=== PATIENT | female | born 1995 | race Caucasian/White ===

== ENCOUNTER 2020-03-03 09:40 | Outpatient (CLI) | payer OTHER, SELFPAY ==
--- NOTE | ~2020-03-03 | XR_ITS ---
EXAMINATION: XR chest 2V EXAM DATE: 03/03/2020 10:15 INDICATION: R06.02 - Shortness of breath, Covid X5 Months Ago . TECHNIQUE: Frontal and lateral projections of the chest obtained and reviewed. There is no prior mamadou dy for comparison. FINDINGS: The lungs are clear. There are no pleural effusions. The cardiomediastinal silhouette is within normal limits. There is no pneumothorax suspected. The bones and soft tissues are unremarkab le. IMPRESSION: Unremarkable chest x-ray exam. Reviewed, dictated and finalized at location A. COPYIST
== END 2020-03-03 09:41 | disposition home or self-care (01) ==
LOC: ANHIMG 09:46
PROVIDERS: PCP Internal Medicine; Visit Provider Clinical Nurse Specialist
DX: R06.02 Shortness of breath (principal)
CPT/HCPCS: 71046

== ENCOUNTER 2020-03-15 14:10 | Outpatient (CLI) | payer OTHER, SELFPAY ==
--- NOTE | ~2020-03-15 | MMUS_ITS ---
EXAMINATION: MM diagnostic tamera BI w jina, US breast BI complete HISTORY: Right breast lump and bilateral breast pain TECHNIQUE: ML, MLO and craniocaudal 3-D tomosynthesis images of both breasts were performed and synth etic 2-D images were generated. CAD analysis was submitted and interpreted. High resolution complete bilateral breast ultrasound was performed. COMPARISON: None BREAST PARENCHYMAL COMPOSITION: The breasts are heterogeneously dense, which may obscure small masses . FINDINGS: MAMMOGRAPHIC FINDINGS: There is a circumscribed approximately 4 x 6 mm mass in the upper outer quadrant of the right breast. The mammographic appearance is consistent with benign process, very possibly an intramammary lymph n ode. There is a 3 x 5 mm oval circumscribed opacity in the lower outer right breast (craniocaudal Tomosynt hesis image /). No suspicious mass or architectural distortion, malignant calcification, skin thickening or retractio n of either breast is evident. ULTRASOUND: In the area of clinical complaint of right breast pain at 9:00 is some heterogeneous interspersed hyp oechoic solid and hyperechoic fatty tissue with mild vascularity in the area. No discrete mass or marika picious shadowing is evident. Right breast 10:00 1 cm from nipple: Parallel circumscribed hypoechoic 3.4 x 5.6 hypoechoic lesion wi thout internal vascularity, with no posterior shadowing, likely benign 10:00 1 cm from nipple: Parallel 5 x 12.5 mm sonolucency with through transmission posterior enhancem ent consistent with cyst. No suspicious mass or shadowing of either breast is evident otherwise. IMPRESSION: 1. Probable benign findings of right breast 2. 6 month diagnostic right mammogram and right breast ultrasound follow-up are recommended. BI-RADS category 3, probably benign findings. Reviewed, dictated and finalized at location A. NE MARKETING ANALYST IMPRESSION: 1. Probable benign findings of right breast 2. 6 month diagnostic right mammogram and right breast ultrasound follow-up are recommended. BI-RADS category 3, probably benign findings.
== END 2020-03-15 14:11 | disposition home or self-care (01) ==
PROVIDERS: PCP Internal Medicine; Visit Provider Clinical Nurse Specialist
DX: N64.4 Mastodynia (principal); N63.0 Unspecified lump in unspecified breast; R92.8 Other abnormal and inconclusive findings on diagnostic imaging of breast
CPT/HCPCS: 76641; 77062; 77066; G0279

== ENCOUNTER 2020-04-04 14:30 | Outpatient (CLI) | payer OTHER, SELFPAY ==
--- NOTE | 2020-04-11 13:30 | WPDPFTINT ---
PFT Interpretation PFT Interpretation: Full pulmonary function testing 04/04/2020. 1. Flows appear normal. 2. Following inhaled bronchodilator, there is substantial improvement in maximum mid-expiratory flows but only modest improvement in FEV1. 3. Lung volumes appear satisfactory. 4.. Diffusing capacity appears normal. Imp - this is a normal pulmonary function test overall, but the improvement in maximum mid-expiratory flows following inhaled bronchodilator does raise the question of bronchospasm. Boston Hartmann MD MSc FACP FCCP
== END 2020-04-04 14:31 | disposition home or self-care (01) ==
LOC: ANHPFT 14:32
PROVIDERS: PCP Internal Medicine; Visit Provider Clinical Nurse Specialist
DX: R06.02 Shortness of breath (principal)
CPT/HCPCS: 94060; 94726; 94729

== ENCOUNTER 2020-05-03 09:26 | Outpatient (CLI) | payer OTHER, SELFPAY ==
--- NOTE | 2020-05-03 09:39 | ECHO_ITS ---
Patient Info Name: Dilshad Bergman Age: 24 years : 1995 Gender: Female Ht: 63 in Wt: 158 lbs BSA: 1.81 m2 HR: 82 bpm BP: 118 / 83 mmHg Heart Rhythm: Sinus Rhythm Technical Quality: Good Exam Date: 05/03/2020 9:50 AM Exam Location: [facility]monary Patient Status: Outpatient Admit Date: 05/03/2020 Staff Ordering Physician: Nubia Jhaveri Physical Therapist Technician: Arturo Bales RDCS Attending Provider: Nubia Jhaveri Referring Physician: Shakila CEJA; Exam Type: CA echo doppler color flow Study Info Indications R06.02 - Shortness of breath Complete two-dimensional, color flow and Doppler transthoracic echocardiogram is performed. Strain analysis performed. History/Risk Factors Shortness of breath; Covid+ 09/2019. Summary 1. Complete two-dimensional, color flow and Doppler transthoracic echocardiogram is performed. 2. Left ventricular chamber dimension is normal. 3. Left ventricular systolic function is normal, estimated at 60-65%. 4. The left ventricular diastolic function is normal. 5. E/e' 4 is not elevated. 6. Global longitudinal strain is normal at -19.1%. 7. No pulmonary hypertension, estimated pulmonary arterial systolic pressure is 22 mmHg. Left Ventricle E/e' 4 is not elevated. Global longitudinal strain is normal at -19.1%. Left ventricular chamber dimension is normal. Left ventricular systolic function is normal, estimated at 60-65%. The left ventricular diastolic function is normal. Right Ventricle Right ventricular chamber dimension is normal. Right ventricular systolic function is normal. Left Atria Left atrial chamber dimension is normal. Right Atria Right atrial chamber dimension is normal. Aortic Valve The aortic valve is trileaflet. There is no aortic valve stenosis. There is no aortic valve regurgitation. Pulmonic Valve There is no pulmonic regurgitation. Mitral Valve There is no mitral valve stenosis. There is no mitral valve regurgitation. Tricuspid Valve There is no tricuspid valve regurgitation. No pulmonary hypertension, estimated pulmonary arterial systolic pressure is 22 mmHg. Pericardium/Pleural There is no pericardial effusion. Inferior Vena Cava Normal inferior vena cava with >50% collapse upon inspiration consistent with normal right atrial pressure, 5 mmHg. Aorta The aortic root size at the sinus of Valsalva is normal. Left Ventricular Outflow Tract Name Value Normal LVOT 2D LVOT Diameter 1.9 cm LVOT Doppler LVOT Peak Gradient 4 mmHg LVOT Mean Gradient 2 mmHg LVOT VTI 20 cm LVOT VTI/AV VTI Ratio 0.8 LVOT Stroke Volume 55 ml LVOT CO 4.5 l/min LVOT CI 2.5 l/min/m2 Mitral Valve Name Value Normal
== END 2020-05-03 09:27 | disposition home or self-care (01) ==
PROVIDERS: PCP Internal Medicine; Visit Provider Clinical Nurse Specialist
DX: R06.02 Shortness of breath (principal)
CPT/HCPCS: 93306

== ENCOUNTER 2020-09-13 11:29 | Outpatient (CLI) | payer OTHER, SELFPAY ==
--- NOTE | ~2020-09-13 | MMUS_ITS ---
EXAMINATION: MM diagnostic tamera RT w jina, US breast RT limited HISTORY: Follow-up right breast masses TECHNIQUE: Additional 3-D tomosynthesis images of the right breast were performed and synthetic 2-D i mages were generated. CAD analysis was submitted and interpreted. High resolution Limited right breas t ultrasound was performed. COMPARISON: 03/15/2020 BREAST PARENCHYMAL COMPOSITION: The breasts are heterogenously dense, which may obscure small masses. FINDINGS: MAMMOGRAPHIC FINDINGS: There are no suspicious masses, calcifications or architectural distortion in the right breast to sug gest malignancy. ULTRASOUND: Limited right breast ultrasound: At 10:00, 1 cm from the nipple there is a stable oval circumscribed hypoechoic mass measuring 13 x 7 x 5 mm. No significant interval change. At 10:00, 3 cm from the nipp le, there is a 4 mm cyst. At 10:00 in the left axilla there is a hypoechoic mass with echogenic hilum and internal vascularity measuring 6 mm, likely benign lymph node. IMPRESSION: 1. Probable benign left breast masses. 2. Recommend 6 month follow-up left breast ultrasound BI-RADS category 3, probably benign findings. Reviewed, dictated and finalized at location A. IMPRESSION: 1. Probable benign left breast masses. 2. Recommend 6 month follow-up left breast ultrasound BI-RADS category 3, probably benign findings.
== END 2020-09-13 11:30 | disposition home or self-care (01) ==
PROVIDERS: PCP Internal Medicine; Visit Provider Clinical Nurse Specialist
DX: R92.8 Other abnormal and inconclusive findings on diagnostic imaging of breast (principal)
CPT/HCPCS: 76642; 77061; 77065; G0279

== ENCOUNTER 2022-02-07 11:44 | Emergency (ER) | payer BC, SELFPAY ==
[2022-02-07 11:54] VITALS: BP 106/71; PULSE 78; RESP 16; TEMP 36.8; O2SAT 100
--- NOTE | 2022-02-07 12:17 | ED.URI ---
HPI - URI/Sore Throat General Chief Complaint: Upper Respiratory Infection Stated Complaint: SORE THROAT/BODY ACHES/CHILLS Time Seen by Provider: 02/07/22 12:18 History of Present Illness HPI Narrative: 26 y/o female presents to with complaints of sore throat, head congestion, cough, chills, body aches, and SOB that started 3 days ago. Denies any fevers, otalgia, wheezing, palpitations, CP, N/V/D. No sick contacts. She has attempted Ibuprofen with minimal improvement. Patient states that her s/s are similar to when she had COVID in 2019. Related Data Home Medications Medication Instructions Recorded Confirmed No Home Medications 02/07/22 02/07/22 Allergies Allergy/AdvReac Type Severity Reaction Status Date / Time Inhaled Anesthetics (Halogen AdvReac Intermediate Vomiting Verified 03/02/21 08:56 Based) Review of Systems Review of Systems: ROS per HPI PMFSH Past Medical History Medical History Abnormal white blood cell count Ankle fracture, right repaired 2012 Chronic fatigue Generalized anxiety disorder GERD (gastroesophageal reflux disease) Migraine headache Surgical History Surgical History S/P foot surgery, right [place] teeth removed Family History Family History Father FH: mental illness Grandparent Lupus Diabetes mellitus Heart disease Grandparent Thyroid disorder Breast cancer Breast disease Grandparent Diabetes mellitus Family hx of prostate cancer Grandparent Malignant neoplasm of prostate Family history of thyroid disease Mother Diabetes mellitus Family history of diabetes mellitus in first degree relative Father FH: mental illness Social History Social History Smoking status: Never smoker Alcohol intake: current Drinks per week: 2 Substance use: never Gender identity (if verbalized by the patient): Female Sexual Orientation (if Verbalized by the Patient): Straight or Heterosexual Exam Narrative: GENERAL: Ill-appearing, nontoxic EYES: conjunctivae clear ENT: Mucous membranes moist. TM pearly palacio with normal light reflex bilaterally; no tragal tenderness. Oropharynx erythematous without lesions. Tonsils 1+ and without exudate. No drooling, no hoarseness, no trismus, uvula midline. No tripod positioning, hot potato voice, or soft palate swelling. NECK: Supple. No lymphadenopathy CHEST: Clear to auscultation, breath sounds equal. No respiratory distress, speaks in full sentences. HEART: Regular rate and rhythm. No murmur heard. SKIN: Warm, dry, no rash. NEURO: Alert and oriented x3. Course Course Emergency Course: Patient is aware of diagnosis, understands and agrees to treatment plan. Anticipatory guidance given. Patient agrees to follow-up as directed and is aware of reasons to seek care at the emergency department. Portions of this record may have been created with voice recognition software Level of Care: Express Care Visit Vital Signs Vital signs: Vital Signs Temperature 98.3 F 02/07/22 11:54 Pulse Rate 78 02/07/22 11:54 Respiratory Rate 16 02/07/22 11:54 Blood Pressure 106/71 02/07/22 11:54 Pulse Oximetry 100 02/07/22 11:54 Temperature 98.3 F 02/07/22 11:54 Pulse Rate 78 02/07/22 11:54 Respiratory Rate 16 02/07/22 11:54 Blood Pressure 106/71 02/07/22 11:54 Pulse Oximetry 100 02/07/22 11:54 MDM - URI/Sore Throat MDM Narrative Medical decision making narrative: Covid and flu, strep negative; result reviewed with pt. Pt had reported sob due to the 'throat swelling' sensation. However on PE, minimal tonsillar swelling, LCTAB. VSS. No distress. Advise supportive treatments. Patient is appropriate for outpatient treatment and follow-up. Differential Diagnosis
== END 2022-02-07 13:02 | disposition home or self-care (01) ==
PROVIDERS: Emergency Provider Nurse Practitioner Family; PCP Internal Medicine
DX: J06.9 Acute upper respiratory infection, unspecified (principal); Z20.822 Contact with and (suspected) exposure to COVID-19; K21.9 Gastro-esophageal reflux disease without esophagitis; Z86.16 Personal history of COVID-19
CPT/HCPCS: 87081; 87426; 87804; 87880; 99213; C9803; G0463

== ENCOUNTER 2023-11-08 12:46 | Outpatient (CLI) | payer BC, SELFPAY ==
--- NOTE | ~2023-11-08 | US_ITS ---
US OB <=14 wk fetus w TV 11/08/2023 13:10 Indication: Amenorrhea Procedure: High-resolution Limited early obstetrical ultrasound using transabdominal and transvaginal technique Comparison: No prior studies for comparison. Findings: Uterus measures 8.7 x 4.9 x 3.7 cm. There is an intrauterine gestational sac measuring 0.78 cm corresponding to 5 week 4 day gestation. No pole or yolk sac are seen. Right ovary measures 2.3 x 2.8 x 2.4 cm. Left ovary measures 2.2 x 2.2 x 1.6 cm. Impression: 1: Intrauterine gestational sac corresponding to 5 week 4 day gestation. No pole or yolk sac. R ecommend follow-up with serial quantitative beta-hCG levels and ultrasound as clinically indicated. Reviewed, dictated and finalized at location B. Impression: 1: Intrauterine gestational sac corresponding to 5 week 4 day gestation. No fet al pole or yolk sac. Recommend follow-up with serial quantitative beta-hCG leve ls and ultrasound as clinically indicated.
== END 2023-11-08 12:47 ==
PROVIDERS: PCP Internal Medicine; Visit Provider Student in an Organized Health Care Education/Training Program
DX: N91.2 Amenorrhea, unspecified (principal)
CPT/HCPCS: 76801; 76817

== ENCOUNTER 2024-04-25 08:07 | Outpatient (RCR) | payer BC, SELFPAY ==
[2024-04-25 09:32] LABS: Basophils Percent Auto 0.3 % (0.2-1.2); Eosinophils Percent Auto 0.4 % (0-4.4); Hematocrit 34.1 % (37.0-47.0); Hemoglobin 11.6 g/dL (12.0-15.0); Immature Granulocyte Percent A 1.4 % (0-0.5); Lymphocytes Absolute Auto 0.96 K/mm3 (0.9-3.2); Lymphocytes Percent Auto 13.2 % (18.3-44.2); Mean Corpuscular Hemoglobin 30.5 pg (26-34); Mean Corpuscular Volume 89.7 fl (80-100); Mean Platelet Volume 10.1 fl (7.4-10.4); Monocytes Absolute Auto 0.4 K/mm3 (0.1-0.6); Monocytes Percent Auto 5.5 % (2.6-8.5); Neutrophils Absolute Auto 5.8 K/mm3 (1.3-6.7); Neutrophils Percent Auto 79.2 % (45.5-73.1); Platelet Count Result 190 k/mm3 (150-375); Red Cell Distribution Width 13.1 % (11.5-14.5); White Blood Count 7.3 K/mm3 (4.5-10.0)
[2024-04-25 09:41] LABS: Glucose 1 Hour PP 50gm Dose 120 mg/dL
[2024-04-25 10:23] LABS: HIV 1/2 Ab P24 Ag Result Negative (Negative)
[2024-04-25 11:00] LABS: Rapid Plasma Reagin Non-Reactive (NonReactive)
[2024-04-26] MEDS: RHO(D) IMMUNE GLOBULIN 300 MCG/2 ML SYRINGE IM (13:24)
== END 2024-07-24 23:59 | disposition home or self-care (01) ==
LOC: ANHLAB 08:07
PROVIDERS: PCP Internal Medicine; Visit Provider Obstetrics & Gynecology
DX: Z11.4 Encounter for screening for human immunodeficiency virus [HIV] (principal); Z11.3 Encounter for screening for infections with a predominantly sexual mode of transmission; Z29.13 Encounter for prophylactic Rho(D) immune globulin; O36.0190 Maternal care for anti-D [Rh] antibodies, unspecified trimester, not applicable or unspecified; Z3A.00 Weeks of gestation of pregnancy not specified
CPT/HCPCS: 36415; 82947; 85025; 85461; 86592; 86703; 86850; 86900; 86901; 90384; 96372; G0432; J2790

== ENCOUNTER 2024-05-05 09:04 | Emergency (ER) | payer BC, SELFPAY ==
--- NOTE | 2024-05-05 09:19 | ED_ITS ---
HPI - URI/Sore Throat General Chief Complaint: Upper Respiratory Infection Stated Complaint: flu like symptoms Time Seen by Provider: 05/05/24 09:20 Source: patient Mode of arrival: ambulatory Limitations: no limitations History of Present Illness HPI Narrative: Dilshad is a 28-year-old female patient presenting to the clinic today with complaints of flu-like symptoms x2 days. She reports she has fever, sore thro at, cough, congestion, body aches, chills, nausea, and vomiting. She is 31 weeks . Denies any vaginal discharge/bleeding, pelvic pain or abdominal pain. MD elicited complaint: fever, cough, sore throat, rhinorrhea and nasal congestion Related Data Home Medications ?Medication ?Instructions ?Recorded ?Confirmed ?Last Taken ?Type doxylamine succinate 25 mg tablet 25 mg PO QHS PRN 02/04/24 04/01/24 Unknown History (Unisom (doxylamine)) pyridoxine (vitamin B6) 10 mg 10 mg PO DAILY 02/04/24 04/01/24 Unknown History tablet Allergies Allergy/AdvReac Type Severity Reaction Status Date / Time Inhaled Anesthetics (Halogen AdvReac Intermediate Vomiting Verified 05/05/24 09:26 Based) Review of Systems Review of Systems: Pertinent positives per HPI. Patient denies any rash, headache, visual changes, dizziness, shortness of breath, chest pain, palpitations, diarrhea, constipation, abdominal pain, or any urinary issues. 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 Abnormal white blood cell count Ankle fracture, right repaired 2012 Migraine headache GERD (gastroesophageal reflux disease) Generalized anxiety disorder Chronic fatigue Surgical History Surgical History History of lumpectomy of right breast H/O removal of cyst S/P foot surgery, right [place] teeth removed Family History Family History Father FH: mental illness Grandparent Lupus Diabetes mellitus Heart disease Grandparent Thyroid disorder Breast cancer Breast disease Grandparent Diabetes mellitus Family hx of prostate cancer Grandparent Malignant neoplasm of prostate Family history of thyroid disease Mother Diabetes mellitus Family history of diabetes mellitus in first degree relative Asthma Father FH: mental illness Alcoholism Social History Social History Social History: Caffeine- coffee/tea Smoking status: Never smoker Alcohol intake: former Alcohol use details: little to none Substance use: never Substance use type: does not use Lack of Transportation: No Lack of Food: Never True Current Housing: Decline to Answer Concerned About Future Housing: Decline to Answer Difficulty Paying Gas/Electric Bills: Decline to Answer Difficulty Paying for Meds: Decline to Answer Currently Unemployed: Decline to Answer Education: Decline to Answer Difficulty w/ Childcare or Family Care: Decline to Answer Living arrangements: with family Additional living arrangements comments: Lives with her Occupation/Education: occupation Gender identity (if verbalized by the patient): Female Sexual Orientation (if Verbalized by the Patient): Straight or Heterosexual Comments At the time of my signature, I reviewed and agree with the nursing past medical, surgical, social, and family history. There is no relevant family history pertinent to the patient complaint. Exam Narrative: General: Well-developed, well nourished, in no apparent distress Head: Normocephalic, atraumatic Eyes: Pupils equally round and reactive to light bilaterally, EOM intact, sclera and conjunctive clear, no discharge, lids normal Ears: TMs intact and congested, ear canals clear, no drainage, grossly hearing normal. Nose: Nares patent, clear nasal discharge, no inflammation, no sinus tenderness. Mouth: Oral pharynx red without lesions or masses, good dentition, MMM. Postnasal drip Neck: Supple, trachea midline, no enlargement of anterior or posterior cervical nodes, no thyroid masses or goiter palpable. Cardio: Regular rate and rhythm, s1 and s2 normal, no murmur appreciated. Resp: Clear to auscultation bilaterally, no rhonchi, rales, wheezing or rubs Course Course Emergency Course: Portions of this record may have been created with voice recognition software. Level of Care: Express Care Visit Vital Signs Vital signs: Vital Signs Temperature 36.9 C 05/05/24 09:27 Pulse Rate 122 H 05/05/24 09:27 Respiratory Rate 18 05/05/24 09:27 Blood Pressure 102/62 05/05/24 09:27 Pulse Oximetry 99 05/05/24 09:27 Oxygen Delivery Room Air 05/05/24 09:27 Temperature 36.9 C 05/05/24 09:27 Pulse Rate 122 H 05/05/24 09:27 Respiratory Rate 18 05/05/24 09:27 Blood Pressure 102/62 05/05/24 09:27 Pulse Oximetry 99 05/05/24 09:27 Oxygen Delivery Room Air 05/05/24 09:27 Vital signs reviewed MDM - URI/Sore Throat MDM Narrative Medical decision making narrative: At the time of visit patient is resting comfortably on the exam table. Patient appears to be nontoxic. Labs: COVID, flu, and strep test were performed. COVID and strep were negative. Influenza testing was positive for influenza A. Plan: Patient is positive for influenza A. We will send strep for culture. Will place the patient on Tamiflu. Recommend contacting OB to see if there is any other further treatment they would like patient to complete. Supportive measures were discussed with the patient and they voiced understanding discharge instructions and agrees to treatment plan. Return precautions reviewed Differential Diagnosis Differential diagnosis: Likely upper respiratory infection, otitis media, sinusitis, viral infection, bronchitis, influenza, pharyngitis and other (COVID) Discharge Plan Discharge Clinical Impression: Influenza A Patient Disposition: Home, Self-Care Condition: Stable Instructions: Antibiotic Form, Influenza (ED) Additional Instructions: Take prescription medications only as prescribed-Tamiflu Increase fluids and stay well hydrated Tylenol for pain/fever Flonase and OTC antihistamines as directed Vicks vapor rub to open sinuses Sinus rinses for congestion Cepacol spray, cough drops, throat lozenges, warm tea with honey/lemon, gargle salt water to soothe throat BRAT diet for diarrhea Clear liquids x 24 hours then advance as tolerated for nausea/vomiting Go to the ED if you develop a worsening in your condition- high fever not controlled by Tylenol or Motrin, dehydration, weakness, lethargy, shortness of breath, or chest pain. Follow up with your PCP in 3-5 days if symptoms persist. Approved Medications for Patients Cold and Flu Symptoms --Tylenol (regular or extra Strength) Fever (call if over 101?)--Tylenol (regular or extra Strength) Nasal Drainage/Head Congestion--Chlor-Trimeton, Sudafed, Tavist,Tylenol Sinus Cough--Robitussin, Delsym, Mucinex Sore Throat--Chloraseptic, Cepacol lozenges Allergy Symptoms--Benadryl, Zyrtec, Zyrtec D, Claritin, Claritin D Nausea--Emetrol, Vitamin B6 Tablets, Sary, Sary Tea, Preggie Pops, B- Suckers Constipation--Milk of Magnesia, Metamucil, Fiberall, Konsyl, Colace (Docusate Sodium) Diarrhea--Imodium, Kaopectate, Follow BRAT diet: bananas, rice, applesauce, tea/toast Heartburn--Maalox, Mylanta, TUMS, Prilosec OTC, Zantac, Tagamet, Prevacid, Pepcid Hemorrhoids--Tucks Pads, Anusol, Preparation H, warm sitz baths Patient Language: Belizean Prescriptions: New oseltamivir [Tamiflu] 75 mg capsule 75 mg PO Q12H 5 Days Qty: 10 0RF No Action Unisom (doxylamine) 25 mg tablet 25 mg PO QHS PRN pyridoxine (vitamin B6) 10 mg tablet 10 mg PO DAILY metoclopramide HCl [Reglan] 10 mg tablet 10 mg PO Q6H PRN (Reason: nausea and vomiting) Qty: 30 1RF Follow-up/Referrals: Boston Freeman DO [Primary Care Provider] - Time of Disposition: 09:34 Quality NIHSS Nursing Documentation ED NIHSS nursing documentation: reviewed/agree
[2024-05-05 09:27] VITALS: BP 102/62; PULSE 122; RESP 18; TEMP 36.9; O2SAT 99
[2024-05-05 09:35] LABS: EDINFLUASCREEN Positive (Negative); EDINFLUBSCREEN Negative (Negative); EDSTREPNEGPOS1 Negative (Negative)
[2024-05-05 09:41] LABS: EDCOVIDSCREEN Negative (Negative)
--- OUTSIDE RECORDS SUMMARY | 2024-05-07 16:43 | XMS_ITS | Encounter Summary ---
Author Organization [facility] Address [address] [place] [address] Phone Care Team Providers Care Senior Technical Support Engineer Name Role Phone Boston Freeman DO Primary Care Provider [phone] Encounter Details Date Type Department Care Team (Late st Contact Info) Description 09/19/2020 Telephone [facility] Surgery [address] [place] [address] [facility] 5[address] [place] [address] [place] [id number] Adia Morrwo Social History Tobacco Use Types Packs/Day Years Used Date Smoking Tobacco: Never Comments No Sex and Gender Information Value Date Recorded Sex Assigned at Not on file 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
--- OUTSIDE RECORDS SUMMARY | 2024-05-07 16:43 | XMS_ITS | Clinical Summary ---
Author Organization [facility] Address [address] [place] [address] Care Team Providers Care Gut Sorter Name Role Phone Boston Freeman DO Primary Care Provider +1- [phone] Allergies Active Allergy Reactions Criticality Noted Date Comments Coconut Nausea & Vomiting Low 10/30/2022 Mushroom Shortness of breath High 11/16/2022 Other Chills,Vomiting Low 04/18/2020 ANESTHESIA- HARD TO COME OUT OF Medications ProAir RespiClick 90 mcg/actuation inhaler Inhale 2 puffs every 8 (eight) hours as needed for shortness of breath or wheezing 0 Active Simpesse 0.15 mg-30 mcg (84)/10 mcg (7) tablets,dose pack,3 monthIndications: Contraception nightly 2 Active multivitamin capsuleIndication s:Vitamin Deficiency Prevention Take 1 capsule by mouth every morning Active ibuprofen (ADVIL,MOTRIN) 400 mg tablet Take 1 tablet (400 mg total) by mouth every 6 (six) hours as needed for pain Active oxyCODONE-acetami nophen (PERCOCET) 5-325 mg per tabletIndications :Pain Take 1 tablet by mouth every 4 (four) hours as needed for pain 8 tablet 3 Active Additional Information Patient not taking.Reported on 11/29/2022 docusate sodium (COLACE) 100 mg capsuleIndication s:constipation Take 1 capsule (100 mg total) by mouth 2 (two) times a day with a glass of water 8 capsule Active Additional Information Patient not taking.Reported on 11/29/2022 Active Problems Problem Noted Date Diagnosed Date Mass of breast 10/29/2022 Breast pain, right 10/25/2022 Anxiety 08/19/2014 Gastroesophageal reflux disease 08/19/2014 Migraine headache 08/19/2014 Surgical History Surgery Date Site/Laterality Comments OTHER SURGICAL HISTORY 04/15/2018 - 04/14/2019 cyst removal on right shoulder OTHER SURGICAL HISTORY 04/15/2012 - 04/14/2013 bone removed on right foot WISDOM TOOTH EXTRACTION 04/15/2014 - 04/14/2015 all 4 Medical History Medical History Date Comments PONV (postoperative nausea and vomiting) Family History Medical History Relation Name Comments Anesthesia problems Maternal Grandmother PONV, delayed emergence, chills Anesthesia problems Mother PONV, de layed emergence, chills Diabetes type I Mother Diabetes marek litus type 1; Other Mother Anesthesia reac tion; Diabetes Other 1 Family history of Diabetes mellitus; Thyroid disease Other 2 Family histo ry of Thyroid disorder; Prostate cancer Paternal Grandfather Skin cancer Paternal Grandfather Relation Name Status Comments Maternal Grandmother Mother Alive Other 1 Other 2 Paternal Grandfather Social History Tobacco Use Types Packs/Day Years Used Date Smoking Tobacco: Never Smokeless Tobacco: Never Tobacco Cessation:Counseling Given: Not Answered Personal Safety Answer Date Recorded Have you ever been in or are you currently in a harmful physical or emotional relationship or is someone making you feel afraid or unsafe? 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 Gender Identity Not on file Sexual Orientation Straight 10/22/2022 10 :32 AM CDT Obstetrics History Last Filed Vital Signs Vital Sign Reading Time Taken Comments Blood Pressure 108/90 11/16/2022 10:20 AM CDT Pulse 94 11/16/2022 10:20 AM CDT Temperature 36.2 ??C (97.2 ??F) 11/16/2022 9:51 AM CD T Respiratory Rate 21 11/16/2022 10:20 AM CDT Oxygen Saturation 99% 11/16/2022 10:20 AM CDT Inhaled Oxygen Concentration - - Weight 73 kg (161 lb) 11/29/2022 8:55 AM CDT Height 160 cm (5' 3 ) 11/29/2022 8:55 AM CDT Body Mass Index 28.52 11/29/2022 8:55 AM CDT Plan of Treatment Health Maintenance Due Date Last Done Comments Cervical Cancer Screening 1993 Depression Screening 1993 Hepatitis C Screening 1993 DTaP/Tdap/Td Vaccine (1 - Tdap) 2004 Varicella Vaccines (1 of 2 - 13+ 2-dose series) 2006 Hepatitis B Screening 2011 Regular Well Visit/Exam 18-64 2011 Influenza Vaccine (#1) 2023 HPV Vaccines Aged Out No longer eligi ble based on patient's age to complete this topic Pneumococcal vaccine <65 Aged Out No longer eligible based on patient's age to complete this topic Insurance [facility] CHOICE PLUS [employer] OOS [employer] OOS Care Teams Gut Sorter Relationship Specialty Start Date End Date Boston Freeman DO PCP - General Internal Medicine 03/18/20
--- OUTSIDE RECORDS SUMMARY | 2024-05-07 16:43 | XMS_ITS | Referral Summary ---
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
== END 2024-05-05 09:48 | disposition home or self-care (01) ==
PROVIDERS: Emergency Provider Nurse Practitioner Family; PCP Internal Medicine
DX: O99.513 Diseases of the respiratory system complicating pregnancy, third trimester (principal); Z3A.31 31 weeks gestation of pregnancy; J10.1 Influenza due to other identified influenza virus with other respiratory manifestations; Z20.822 Contact with and (suspected) exposure to COVID-19; O99.613 Diseases of the digestive system complicating pregnancy, third trimester; K21.9 Gastro-esophageal reflux disease without esophagitis
CPT/HCPCS: 87081; 87426; 87804; 87880; 99213; G0463

== ENCOUNTER 2024-05-19 15:51 | Outpatient (RCR) | payer BC, SELFPAY ==
[2024-05-11 12:16] VITALS: BP 109/72; PULSE 103
[2024-05-11 13:10] VITALS: BP 109/72; PULSE 102
--- NOTE | ~2024-05-19 | US_ITS ---
EXAMINATION: US OB BPP wo non-stress DATE: 05/11/2024 12:58 INDICATION: Decreased movement TECHNIQUE: Real-time pelvic ultrasound was performed. The interpreting radiologist was not present fo r the study. COMPARISON: None. FINDINGS: There is a single living fetus in vertex presentation. The placenta is anterior. heart rate is 147 beats per minute (bpm). Metastatic fluid volume is subjectively normal with deepest vertical poc ket measuring 5.5 cm. Biophysical profile performed by the technologist: breathing (30 sec sustained breathing in 30 minutes): 2 out of 2 movement (3 gross body movements in 30 minutes): 2 out of 2 tone (one episode of mctmony-nzsaalkff-ootbqmo limb movement): 2 out of 2 Amniotic fluid pocket (2 cm): 2 out of 2 Total score: 8 out of 8 IMPRESSION: 1. Single living fetus in vertex presentation with heart rate of 147 bpm. 2. Biophysical profile 8 out of 8. Reviewed, dictated and finalized at location B. GR[employer] CONSULTANT
[2024-05-19 18:30] VITALS: BP 107/67; PULSE 101
== END 2024-08-05 17:02 | disposition home or self-care (01) ==
LOC: ANHOBOP 15:51
PROVIDERS: PCP Internal Medicine; Visit Provider Student in an Organized Health Care Education/Training Program
DX: O36.8190 Decreased fetal movements, unspecified trimester, not applicable or unspecified (principal)
CPT/HCPCS: 59025; 76819

== ENCOUNTER 2024-07-08 16:53 | Inpatient (IN) | payer BC, SELFPAY ==
[2024-07-08] VITALS (66 sets, daily range): BP systolic 114–143; BP diastolic 65–94; PULSE 25–148; TEMP 36.6–37.2; O2SAT 93–100; BMI 37.0
--- NOTE | 2024-07-08 16:53 | LDADM ---
This patient, Dilshad Smith, was admitted to Labor/Delivery/Recovery 103 on 07/08/24 at 16:53. Plans for labor, pain management and were discussed with patient. Patient/family oriented to hospital policies and general routines including ID bracelet, bed and alarms, visiting hours, pain management, procedures, bathroom and other care routines, personal items, smoking policy, room service/diet and guest tray routines, infant security routines, and visiting hours. Patient/Family are encouraged to report perceived risks to care and to ask questions if they do not understand what they are told or what they should do. See OBIX for further documentation.
--- OUTSIDE RECORDS SUMMARY | 2024-07-08 17:27 | XMS_ITS | Referral Summary ---
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 Gender Identity Not on file Sexual Orientation Straight 10/22/2022 10 :32 AM CDT Last Filed Vital Signs Vital Sign Reading Time Taken Comments Blood Pressure 108/90 11/16/2022 10:20 AM CDT Pulse 94 11/16/2022 10:20 AM CDT Temperature 36.2 C (97.2 F) 11/16/2022 9:51 AM CDT Respiratory Rate 21 11/16/2022 10:20 AM CDT Oxygen Saturation 99% 11/16/2022 10:20 AM CDT Inhaled Oxygen Concentration - - Weight 73 kg (161 lb) 11/29/2022 8:55 AM CDT Height 160 cm (5' 3 ) 11/29/2022 8:55 AM CDT Body Mass Index 28.52 11/29/2022 8:55 AM CDT Plan of Treatment Not on file Insurance [facility] CHOICE PLUS [facility] HMO/PPO Address: [address] [address] [place] [address] [employer] ACCESS OOS [employer] ACCESS OOS Care Teams Passport Application Examiner Relationship Specialty Start Date End Date Boston Freeman DO PCP - General Internal Medicine 03/18/20
--- OUTSIDE RECORDS SUMMARY | 2024-07-08 17:27 | XMS_ITS | Clinical Summary ---
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
--- OUTSIDE RECORDS SUMMARY | 2024-07-08 17:27 | XMS_ITS | Encounter Summary ---
Author Organization [facility] Address [address] [place] [address] Phone Care Team Providers Care Senior Materials Planner Name Role Phone Boston Freeman DO Primary Care Provider +1- [phone] Encounter Details Date Type Department Care Team (Late st Contact Info) Description 09/19/2020 Telephone [facility] Surgery [facility] 5th [place] [address] [place] [address] Adia Morrow Social History Tobacco Use Types Packs/Day Years Used Date Smoking Tobacco: Never Comments No Sex and Gender Information Value Date Recorded Sex Assigned at Not on file 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
[2024-07-08 18:03] LABS: Basophils Percent Auto 0.3 % (0.2-1.2); Eosinophils Percent Auto 0.4 % (0-4.4); Hematocrit 32.1 % (37.0-47.0); Hemoglobin 10.8 g/dL (12.0-15.0); Immature Granulocyte Absolute 0.09 K/mm3 (0.00-0.031); Immature Granulocyte Percent A 1.3 % (0-0.5); Lymphocytes Absolute Auto 1.18 K/mm3 (0.9-3.2); Lymphocytes Percent Auto 17.5 % (18.3-44.2); Mean Corpuscular HGB Conc 33.6 g/dl (32-36); Mean Corpuscular Hemoglobin 28.4 pg (26-34); Mean Corpuscular Volume 84.5 fl (80-100); Mean Platelet Volume 10.9 fl (7.4-10.4); Monocytes Absolute Auto 0.4 K/mm3 (0.1-0.6); Monocytes Percent Auto 6.2 % (2.6-8.5); Neutrophils Percent Auto 74.3 % (45.5-73.1); Platelet Count Result 272 k/mm3 (150-375); Red Cell Distribution Width 14.1 % (11.5-14.5); White Blood Count 6.7 K/mm3 (4.5-10.0)
[2024-07-08] MEDS: OXYTOCIN 30 UNITS/NS 500 ML 30 UNITS/500 ML BAG 6 UNITS IV CONT (18:37)
[2024-07-08] MEDS: LACTATED RINGERS 1,000 ML 125 ML IV CONT (18:38)
[2024-07-08 18:44] LABS: OBXCEM ROM Plus Positive (Negative)
[2024-07-08 18:53] LABS: HIV 1/2 Ab P24 Ag Result Negative (Negative)
[2024-07-08 19:18] LABS: Syphilis IgG/IgM Antibody Negative (Negative)
--- NOTE | 2024-07-08 19:20 | P.PNAN_ITS ---
Anes - Eval Pre Procedure Procedure: labor epidural Date/Time: 07/08/24 19:20 Surgeon: leonela Preop Diagnosis: pain during labor Pre Op Diagnosis: IOL Patient Data Age: 29 Gender: F Height: 1.6 m Weight: 95 kg Last Vital Signs Temp 37.2 C 07/08/24 18:30 Pulse 99 07/08/24 19:00 BP 127/82 07/08/24 19:00 Allergies Allergy/AdvReac Type Severity Reaction Status Date / Time Inhaled Anesthetics (Halogen AdvReac Intermediate Vomiting Verified 07/06/24 17:28 Based) Home Medications ?Medication ?Instructions ?Recorded ?Confirmed ?Type No Home Medications 06/24/24 07/08/24 History Laboratory Tests 07/08/24 07/08/24 17:05 17:40 WBC 6.7 K/mm3 (4.5-10.0) RBC 3.80 L M/mm3 (4.2-5.4) Hgb 10.8 L g/dL (12.0-15.0) Hct 32.1 L % (37.0-47.0) MCV 84.5 fl (80-100) MCH 28.4 pg (26-34) MCHC 33.6 g/dl (32-36) RDW 14.1 % (11.5-14.5) Plt Count 272 k/mm3 (150-375) MPV 10.9 H fl (7.4-10.4) Immature Gran % (Auto) 1.3 H % (0-0.5) Neut % (Auto) 74.3 H % (45.5-73.1) Lymph % (Auto) 17.5 L % (18.3-44.2) [place] % (Auto) 6.2 % (2.6-8.5) Eos % (Auto) 0.4 % (0-4.4) Baso % (Auto) 0.3 % (0.2-1.2) Lymph # (Auto) 1.18 K/mm3 (0.9-3.2) [place] # (Auto) 0.4 K/mm3 (0.1-0.6) Eos # (Auto) 0.0 K/mm3 (0-0.3) Baso # (Auto) 0.0 K/mm3 (0.0-0.1) Abs Immat Gran (auto) 0.09 H K/mm3 (0.00-0.031) Absolute Neuts (auto) 5.0 K/mm3 (1.3-6.7) Absolute Nucleated RBC 0.000 K/mm3 (0.0-0.012) Nucleated RBC % 0.0 % (0.0-0.2) Membranes Rupture Rom plus positive (Negative) Syphilis IgG/IgM Ab Negative (Negative) HIV 1&2 Ab/P24 Ag 4thGn Negative (Negative) Blood Type A Negative Antibody Screen Positive Antibody Identification Pending Antigen Identification Pending NGA, IgG Interpret Pending NGA, Poly Interpret Pending NGA, Complement Interp Pending Patient hx anesthesia problems: post op nausea/vomiting Family hx anesthesia problems: none Results Review: All pre-operative results and documents have been reviewed as part of the pre- operative evaluation. 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 Abnormal white blood cell count Ankle fracture, right repaired 2012 Migraine headache GERD (gastroesophageal reflux disease) Generalized anxiety disorder Chronic fatigue Surgical History Surgical History History of lumpectomy of right breast H/O removal of cyst S/P foot surgery, right [place] teeth removed Family History Family History Father FH: mental illness Grandparent Lupus Diabetes mellitus Heart disease Grandparent Thyroid disorder Breast cancer Breast disease Grandparent Diabetes mellitus Family hx of prostate cancer Grandparent Malignant neoplasm of prostate Family history of thyroid disease Mother Diabetes mellitus Family history of diabetes mellitus in first degree relative Asthma Father FH: mental illness Alcoholism Social History Social History Social History: Caffeine- coffee/tea Smoking status: Never smoker Alcohol intake: former Alcohol use details: little to none Substance use: never Substance use type: does not use Do You Feel Safe in your Home?: Yes Lack of Transportation: No Lack of Food: Never True Current Housing: I Have Housing Concerned About Future Housing: No Difficulty Paying Gas/Electric Bills: No Difficulty Paying for Meds: No Currently Unemployed: No Education: Associate Degree Difficulty w/ Childcare or Family Care: No Living arrangements: with family Additional living arrangements comments: Lives with her Occupation/Education: occupation Gender identity (if verbalized by the patient): Female Sexual Orientation (if Verbalized by the Patient): Straight or Heterosexual Spiritual care concerns: No Exam Day of Procedure 07/08/24 19:20
[2024-07-08] MEDS: fentaNYL CITRATE INJ (*CRX) 100 MCG/2 ML VIAL IV PUSH (22:22)
--- NOTE | 2024-07-08 23:56 | WPDHPUPDATE1 ---
History and Physical Update Update Date/Time: 07/08/24 23:56 29 yo at 40w1d who presents with SROM. She reports SROM at 1500. History and Physical has been reviewed, including an updated exam of the patient. There are NO changes in the patient's condition. Risks, benefits, and alternatives have been discussed and questions answered. Patient agrees to proceed with procedure. - Varicella/rubella- non-immune - Rh neg- Pt will need rhogam - Severe gerd; h/o multiple EGDs/esophegeal stretching, previously on prilosec - Anxiety- has script for zoloft 25mg daily -admit to L&D routine admission orders GBS neg continuous EFM will augment with pitocin
[2024-07-09] VITALS (225 sets, daily range): BP systolic 87–145; BP diastolic 37–123; PULSE 31–143; RESP 18; TEMP 36.6–37.7; O2SAT 78–100
[2024-07-09] MEDS: fentaNYL CITRATE INJ (*CRX) 100 MCG/2 ML VIAL IV PUSH (00:07)
[2024-07-09] MEDS: ONDANSETRON INJ 4 MG/2 ML VIAL IV PUSH (05:02)
--- NOTE | 2024-07-09 05:52 | PM.OBPRVD ---
OB - Vaginal Delivery Note Procedure Delivery date: 07/09/24 Induction method: None Delivery augmentation: Pitocin Delivery monitor: External FHT and Internal Uterine Route of delivery: Episiotomy description: None Laceration Description: Perineal - 2nd Degree Delivery repair: vicryl Specimen: No Quantitative Blood Loss (ml): 100 Anesthesia type: Epidural Disposition: Floor Complications: No immediate complications Narrative: Patient pushed for a spontaneous vaginal delivery. The fetus was delivered atraumatically and placed on the maternal abdomen. The cord was clamped and cut after 1 minute of life. The cord was double clamped and cut and a segment of cord was collected for cord gases. Cord blood was collected for blood type and Coomb's testing. The placenta delivered spontaneously and was noted to be intact. The perineum was inspected and a second degree perineal laceration was noted. The laceration was repaired with 3-0 vicryl in a running fashion. The uterus was firm and good hemostasis was noted. Baby Date of : 07/09/24 Time of : 05:26 gender: Female presentation: vertex position: Left Occiput Anterior Placenta delivery description: Spontaneous Cord Vessel Description: 3 Vessels score one minute: 7 score five minutes: 9
[2024-07-09] MEDS: OXYTOCIN 30 UNITS/NS 500 ML 30 UNITS/500 ML BAG 125 UNITS IV CONT ×2 (06:09→07:20)
[2024-07-09] MEDS: miSOPROStol 200 MCG TABLET 1000 MCG RECTAL (06:59)
[2024-07-09] MEDS: IBUPROFEN 600 MG TABLET PO ×3 (07:50→20:05)
[2024-07-09] MEDS: fentaNYL CITRATE INJ (*CRX) 100 MCG/2 ML VIAL (09:11)
--- NOTE | 2024-07-09 09:40 | P.PNOB_ITS ---
OB - PN: Subj Subjective Date/time seen: 07/09/24 09:40 Interval history: 29-year-old called patient's room by RN for concerns of bleeding. Patient had had increased bleeding . Patient was passing large clots in uterus felt soft. Patient had received 1000 mcg of Cytotec UT. Patient was mildly tachycardic. The next step patient was stood up to use the restroom, she had another large blood clot passed. Patient had up to 1200 mL of blood loss since delivery. OB - PN: Obj Data Labs 07/08/24 17:40 Labs: Laboratory Results - last 24 hr 07/08/24 07/08/24 17:05 17:40 WBC 6.7 RBC 3.80 L Hgb 10.8 L Hct 32.1 L MCV 84.5 MCH 28.4 MCHC 33.6 RDW 14.1 Plt Count 272 MPV 10.9 H Immature Gran % (Auto) 1.3 H Neut % (Auto) 74.3 H Lymph % (Auto) 17.5 L [place] % (Auto) 6.2 Eos % (Auto) 0.4 Baso % (Auto) 0.3 Lymph # (Auto) 1.18 [place] # (Auto) 0.4 Eos # (Auto) 0.0 Baso # (Auto) 0.0 Abs Immat Gran (auto) 0.09 H Absolute Neuts (auto) 5.0 Absolute Nucleated RBC 0.000 Nucleated RBC % 0.0 Membranes Rupture Rom plus positive Syphilis IgG/IgM Ab Negative HIV 1&2 Ab/P24 Ag 4thGn Negative Blood Type A Negative Antibody Screen Positive Antibody Identification Inconclusive Antigen Identification Cancelled NGA, IgG Interpret Not Performed NGA, Poly Interpret Neg NGA, Complement Interp Not Performed OB - PN A/P Assessment and Plan (1) hemorrhage: Code(s): O72.1 - Other immediate hemorrhage Status: Acute Assessment and Plan: called patient's room for concern for hemorrhage Patient had over 1200 mL of blood loss since delivery Uterus enlarged and displaced from the midline Bimanual exam performed, blood clot removed from the lower uterine segment The Yana device was placed within the uterus. Vaginal balloon was filled with saline. The device was hooked to wall suction Device was placed without complications Patient tolerated procedure well Patient stable at this time Will continue to monitor blood loss Time Spent With Patient Time: Total time spent is greater than 50% in coordination of care (as documented) at patient's floor/unit and/or counseling patient: Review of Systems 2 Review of Systems: All systems reviewed & are unremarkable except as noted in HPI and below Exam 2 Const: General: cooperative and comfortable Resp: Effort & Inspection: normal respiratory effort and able to speak in complete sentences Cardio: Rate: tachycardic GI: GI Palp: Yes Soft to palpation : External Female Exam: normal external appearance Speculum Exam - Vagina: vaginal bleeding Bimanual exam- vagina & uterus: enlarged and soft
[2024-07-09] MEDS: LACTATED RINGERS 1,000 ML 999 ML IV CONT (10:17)
[2024-07-09] MEDS: ACETAMINOPHEN 325 MG TABLET 650 MG PO (10:20)
[2024-07-09] MEDS: ceFAZolin 2 GM/D5W 50 ML 2 GM/50 ML BAG IVPB (12:21)
[2024-07-09] MEDS: MULTIVIT/MIN/PREN/FOL AC/IRON TABLET 1 TAB PO (13:10)
--- NOTE | 2024-07-09 13:41 | OBPPTRN ---
Patient and baby transferred to post room #285 via ( bed). Support person present. Oriented to unit, room, information board, rooming in, admission packet and security measures. Patient verbalizes understanding.
--- NOTE | 2024-07-09 14:23 | PC.NURSE ---
1245. Introductions were made, then consulted with patient to assess needs related to . Discussed with mother her plans to feed her and the experience so far. Mom reports she would like to pump and feed infant with a bottle, she reports she is not interested in attempted to breastfeed at this time. Mom reports she has her own pump. Instructions given on cleaning, care, usage, that there should be no pain, pumping schedule for milk production, collection, and storage of human milk. Patient was assessed for correct placement, flange size, to pump for comfort and nipple stretching/stimulation for adequate milk production every 3 hours (8 times in 24 hours) 1-2 times at night. Parents are encouraged to record the pumping schedule on the feeding sheet.? Encouraged mother to express any questions or concerns she has regarding feedings. Advised her to call out for a latch check or if she needs assistance waking or positioning baby. Reviewed the blue feeding worksheet for required output and feeding at least 8-12 times every 24 hours. Resources provided for inpatient and outpatient services with the feeding sheet, mom/baby guide, and name/number written on the communication board. Mother voiced understanding of information and will call if there is a request for assistance. Reported to the Primary RN?
--- NOTE | 2024-07-09 15:00 | PC.NURSE ---
Yana device removed by Dr. Martinez at 1450. A few small sugar size clots noted. Fundus 1 below with small bleeding. Urinary catheter removed at 1455. 100mL output drained.
--- NOTE | 2024-07-09 15:05 | PC.NURSE ---
Yana device removed by Dr. Martinez at 1450. A few small nickel size clots noted. Fundus 1 below with small bleeding. Urinary catheter removed at 1455. 100mL output drained.
--- NOTE | 2024-07-09 15:30 | P.PNOB_ITS ---
OB - PN: Subj Subjective Date/time seen: 07/09/24 15:30 Interval history: Patient resting comfortably in bed. She had reported discomfort with the Yana device in place. There had been minimal output from the device for some time. Suction was turned off and the device left in place for 1 hour. No further bleeding was noted. Patient comments: no complaints and pain well controlled OB - PN: Obj Data Labs 07/08/24 17:40 Labs: Laboratory Results - last 24 hr 07/08/24 07/08/24 17:05 17:40 WBC 6.7 RBC 3.80 L Hgb 10.8 L Hct 32.1 L MCV 84.5 MCH 28.4 MCHC 33.6 RDW 14.1 Plt Count 272 MPV 10.9 H Immature Gran % (Auto) 1.3 H Neut % (Auto) 74.3 H Lymph % (Auto) 17.5 L [place] % (Auto) 6.2 Eos % (Auto) 0.4 Baso % (Auto) 0.3 Lymph # (Auto) 1.18 [place] # (Auto) 0.4 Eos # (Auto) 0.0 Baso # (Auto) 0.0 Abs Immat Gran (auto) 0.09 H Absolute Neuts (auto) 5.0 Absolute Nucleated RBC 0.000 Nucleated RBC % 0.0 Membranes Rupture Rom plus positive Syphilis IgG/IgM Ab Negative HIV 1&2 Ab/P24 Ag 4thGn Negative Blood Type A Negative Antibody Screen Positive Antibody Identification Inconclusive Antigen Identification Cancelled NGA, IgG Interpret Not Performed NGA, Poly Interpret Neg NGA, Complement Interp Not Performed OB - PN A/P Assessment and Plan (1) hemorrhage: Code(s): O72.1 - Other immediate hemorrhage Status: Acute Assessment and Plan: VSS patient states she is feeling much better no bleeding noted after Yana taken off of suction for 1 hr The balloon was deflated and the Yana device was removed There was a small dark red blood clot that followed after the device. Good hemostasis was noted after removal patient tolerated removal will continue to monitor bleeding Time Spent With Patient Time: Total time spent is greater than 50% in coordination of care (as documented) at patient's floor/unit and/or counseling patient: Time with patient: less than 15 minutes Review of Systems 2 Review of Systems: All systems reviewed & are unremarkable except as noted in HPI and below Exam 2 Const: General: cooperative and comfortable Resp: Effort & Inspection: normal respiratory effort Cardio: Rate: regular rate GI: GI Palp: Yes Soft to palpation and No Tenderness to palpation present (GI) Auscultation: normal bowel sounds Other: fundus firm and below umbilicus. Psych: Affect: normal affect
[2024-07-09] MEDS: DOCUSATE SODIUM 100 MG CAPSULE PO (16:05)
--- NOTE | 2024-07-09 17:09 | PC.NURSE ---
1709. Breast pump provided due to moms preference, mom states she would like to pump and bottle feed and does not want to breastfeed. Instructions given on cleaning, care, usage, that there should be no pain, pumping schedule for milk production, collection, and storage of human milk. Patient was assessed for correct placement, flange size, to pump for comfort and nipple stretching/stimulation for adequate milk production every 3 hours (8 times in 24 hours) 1-2 times at night. Parents are encouraged to record the pumping schedule on the feeding sheet.?Mother voiced understanding of the education shared along with mom/baby guide and the pump measurement, flange fit handout for additional resource information. Reported to the Primary RN.
[2024-07-10] VITALS (11 sets, daily range): BP systolic 106–188; BP diastolic 58–83; PULSE 74–110; RESP 12–18; TEMP 36.1–36.8; O2SAT 96–99
[2024-07-10 04:48] LABS: Hematocrit 23.8 % (37.0-47.0); Hemoglobin 7.6 g/dL (12.0-15.0)
--- NOTE | 2024-07-10 07:43 | P.PNOB_ITS ---
OB - PN: Subj Subjective Date/time seen: 07/10/24 07:43 Interval history: Patient resting comfortably in bed. She had reported discomfort with the Yana device in place. There had been minimal output from the device for some time. Suction was turned off and the device left in place for 1 hour. No further bleeding was noted. Patient comments: no complaints, pain well controlled and tolerating diet [place] feeding status: exclusively breast feeding Narrative: patient doing well this AM. No complaints. Pain is well controlled. She reports minimal bleeding. She is ambulating and voiding without difficulty. She is tolerating PO. She denies N/V, fever, chills. OB - PN: Obj Data Labs 07/10/24 03:57 Labs: Laboratory Results - last 24 hr 07/08/24 07/10/24 17:40 03:57 Hgb 7.6 L D Hct 23.8 L Antigen Identification Cancelled Crossmatch See Detail OB - PN A/P Plan day: 1 Plan: routine care Comments: patient doing well H/H stable continue routine care Time Spent With Patient Time: Total time spent is greater than 50% in coordination of care (as documented) at patient's floor/unit and/or counseling patient: Time with patient: less than 15 minutes Review of Systems 2 Review of Systems: All systems reviewed & are unremarkable except as noted in HPI and below Exam 2 Const: General: comfortable and no acute distress Resp: Effort & Inspection: normal respiratory effort Cardio: Rate: regular rate GI: GI Palp: Yes Soft to palpation and No Tenderness to palpation present (GI) Auscultation: normal bowel sounds Other: fundus firm and below umbilicus. Psych: Affect: normal affect
--- NOTE | 2024-07-10 07:48 | WPDANLDPN2 ---
Anes-Prog Note L&D Date/Time: 07/10/24 07:48 Comfortable throughout: labor and delivery Neuraxial method: epidural Epidural/Spinal procedure site: clean & non-tender Neuro status: Neuro function grossly intact. Cardiovascular status: normal Respiratory status: normal Airway patency: baseline Mental status: baseline Post-Op hydration status: normal Vital Signs: Last Vital Signs Temp 98 F 07/10/24 03:56 Pulse 74 07/10/24 03:56 Resp 18 07/10/24 03:56 BP 118/67 07/10/24 03:56 Pulse Ox 99 07/10/24 03:56 O2 Del Method Room Air 07/09/24 15:00 Pain score (VAS): 0/10 I/O: Intake & Output 07/09/24 07/09/24 07/10/24 15:59 23:59 07:59 Intake Total 0 Output Total 1550 Balance -1550 0 Post-procedural complaints: none Patient feedback: Patient satisfied with anesthetic care.
[2024-07-10] MEDS: MULTIVIT/MIN/PREN/FOL AC/IRON TABLET 1 TAB PO (08:24)
[2024-07-10] MEDS: DOCUSATE SODIUM 100 MG CAPSULE PO ×2 (08:25→16:00)
[2024-07-10] MEDS: IBUPROFEN 600 MG TABLET PO ×2 (08:25→20:00)
[2024-07-10] MEDS: POLYSACCHARIDE IRON COMPLEX 150 MG CAPSULE PO ×2 (08:25→16:00)
--- NOTE | 2024-07-10 10:30 | PC.NURSE ---
Met with patient regarding pumping concerns. She is worried that she will not have a good milk supply because her breasts didn't change or grow much during . It is her intention to exclusively pump and bottle feed. She has a history of breast surgery on the right breast. She states that the right nipple still has good sensation. The doctor who performed the breast surgery assured the patient that it should not affect . We discussed pumping consistently for the best chance of having a good milk supply. Patient seems well informed. Father is supportive but has a lot of questions and concerns regarding pumping and breastmilk. Patient has a good support community of pumping and moms. She is receiving 2 units of blood today and we discussed that her milk production could be delayed due to her hemorrhage. Patient feels positive about continuing her pumping routine today and understands that she will need to be patient to see how her body responds to everything that has happened. Patient is advised to call out for any questions or concerns today. RN updated.
--- NOTE | 2024-07-10 16:05 | PC.NURSE ---
Met with patient to see how pumping has been going today. She used her Spectra pump with the 24mm flanges and felt that it was more comfortable than the Medela pump. Supported her to use whichever pump works best for her. Encouraged consistent pumping as she has only pumped once today. Significant other at bedside. No further questions or concerns at this time.
[2024-07-11 05:45] LABS: Hematocrit 27.4 % (37.0-47.0)
--- NOTE | 2024-07-11 07:36 | PM.OBDSVD ---
DS: Admitting Diagnosis Discharge Date 07/11/24 Admitting Diagnosis intrauterine at term DS: Discharge Diagnosis Discharge Diagnosis (1) Normal vaginal delivery: Code(s): O80 - Encounter for full-term uncomplicated delivery Status: Acute (2) hemorrhage: Code(s): O72.1 - Other immediate hemorrhage Status: Acute OB - DS: Summary Hospital Course Hospital Course: 29 yo G1 who presented after SROM at 40w1d. She progressed to complete and had an uncomplicated vaginal delivery. she was noted to have uterine atony and hemorrhage. She received pitocin, [place] cytotec, and the Yana device was placed. She received 2 u pRBC on PPD#1. VSS. She feels much better this AM. OB Procedures : None OB Procedures Intrapartum: Spontaneous Vag Delivery OB Procedures: : None Peripartum Data Laceration Description: Perineal - 2nd Degree Episiotomy description: None complications: transfusion and uterine atony Status at Discharge Functional status at discharge: independent ambulation Overall status at discharge: patient is back to baseline Time Spent with Patient Time attestation: Total time spent providing and/or coordinating discharge services: Time spent: Less than 30 minutes Exam Const: General: comfortable and no acute distress Resp: Effort & Inspection: normal respiratory effort Auscultation: clear to auscultation bilaterally Cardio: Rate: regular rate GI: GI Palp: Yes Soft to palpation Auscultation: normal bowel sounds Other: Fundus firm below umbilicus Psych: Appearance: grossly normal Mental Status: mental status grossly normal Affect: normal affect DS: Data Data Completed and Pending Labs on day of discharge: Labs from last 24 hours 07/11/24 07/08/24 04:50 17:40 Hgb 8.0 L Hct 27.4 L Blood Type A Negative Antibody Screen Positive Antibody Identification Inconclusive Antigen Identification Cancelled NGA, Poly Interpret Neg Enhanced Crossmatch See Detail Discharge Plan Discharge Discharging Clinician: Jerman Martinez Activity: as tolerated and pelvic rest Patient Instructions: Vaginal Delivery (DC) Patient Language: Greenlandic Follow-up/Referrals: Jerman Martinez MD [Physician] - Discharge Medications: No Action No Home Medications Date of admission: 07/08/24 16:53 Primary Care Provider: UNKNOWN,DOCTOR Admitting Provider: Jerman Martinez Attending physician on admission: Jerman Martinez Condition: Stable
[2024-07-11 07:55] VITALS: BP 115/70; PULSE 80; RESP 18; TEMP 36.6; O2SAT 100
[2024-07-11] MEDS: MULTIVIT/MIN/PREN/FOL AC/IRON TABLET 1 TAB PO (08:35)
[2024-07-11] MEDS: DOCUSATE SODIUM 100 MG CAPSULE PO (08:35)
[2024-07-11] MEDS: POLYSACCHARIDE IRON COMPLEX 150 MG CAPSULE PO (08:35)
[2024-07-11] MEDS: MEASLES,MUMPS,RUBELLA VACCINE 0.5 ML VIAL SUB-Q (11:40)
--- NOTE | 2024-07-11 11:51 | PC.NURSE ---
Mother is pumping and using Spectra S1 brought from home. She denies any need for additional education at this time. Handouts provided and discussed with patient power pumping to increase her milk supply. Mother is concerned about her supply, discussed her blood loss and how it could take longer for her milk to increase but to continue pumping regularly. Mother states understanding.
--- NOTE | 2024-07-13 08:15 | PC.NURSE ---
Patient here for her follow up appointment. Mom and dad have concerns that mom is pumping frequently but doesn't have the production they expect. She is pumping 10-15ml each session. She had a hemorrhage and we discussed this may delay her production. It is up to mom to decide how much she wants to pump and if it is worth it for her to continue if she isn't getting a lot of volume. Assured parents that there are benefits of breast milk as long as they choose to provide it to baby, even after the colostral phase. Mom wants to try pumping every 4 hours. Educated that since she is still in the initiation phase of milk production, decreasing pumping frequency will most likely decrease her production volume. Mom knows that since she is only 3 days today that she may still have her milk 'come in' in greater volume up to day 5 or later. Dad seems concerned that mom isn't sleeping enough and that pumping is interfering with her rest. Counseled parents that they have to determine the benefits vs the challenges of pumping or exclusively formula feeding. Parents verbalize their understanding of the information shared. They have the phone number and are encouraged to call with further concerns or questions.
[2024-07-13 08:26] VITALS: BP 121/76; PULSE 70; RESP 18; TEMP 36.7; O2SAT 100
== END 2024-07-11 13:20 | disposition home or self-care (01) | DRG 768 ==
LOC: ANHLDR 17:13 → ANHOB2 07-09 12:15
PROVIDERS: Admitting Provider Student in an Organized Health Care Education/Training Program; Visit Provider Student in an Organized Health Care Education/Training Program
DX: O26.893 Other specified pregnancy related conditions, third trimester (principal); Z37.0 Single live birth; Z3A.40 40 weeks gestation of pregnancy; Z67.91 Unspecified blood type, Rh negative; O70.1 Second degree perineal laceration during delivery; O99.344 Other mental disorders complicating childbirth; F41.9 Anxiety disorder, unspecified; O72.1 Other immediate postpartum hemorrhage
CPT/HCPCS: 36415; 36430; 84112; 85014; 85018; 85025; 86593; 86703; 86850; 86880; 86900; 86901; 86902; 86922; 90710; A9270; G0432; J0690; J2405; J2590; J2795; J3010; J7120; P9016

== ENCOUNTER 2024-08-06 14:52 | Observation (INO) | payer BC, SELFPAY ==
--- NOTE | ~2024-08-06 | CT_ITS ---
CLINICAL INDICATION: Abdominal pain and fever COMPARISON: None. TECHNIQUE: Multiple contiguous axial images of the abdomen and pelvis were performed following the ad ministration of with 100 mL Omnipaque-350 intravenous contrast The dose-length product (DLP) was 606.24 mGy-cm. Automated exposure control and iterative reconstruction technique were employed. FINDINGS/OBSERVATIONS: Visualized lower thorax: The bilateral lung bases are clear. The heart is of normal size, without pericardial effusion. Small hiatal hernia is present. Liver: The liver demonstrates homogeneous enhancement and is not enlarged. Gallbladder and biliary system: The gallbladder is only minimally distended, and otherwise unremarkable. Pancreas: The pancreas enhances homogeneously without ductal dilatation. Spleen: The spleen enhances homogeneously and is markedly enlarged measuring 16 cm in longitudinal dimension. Kidneys: The bilateral kidneys enhance symmetrically without hydronephrosis or renal calculi. Adrenal glands: Unremarkable. Gastrointestinal tract: Fecal stasis within the colon. Appendix: The air-filled appendix is of normal caliber (axial series, images 123 through 132). Vasculature: Unremarkable. Lymph nodes: No pathologically enlarged or morphologically suspicious lymph nodes within the retroperitoneum or at the root of the mesentery. Pelvic structures: The bladder is decompressed. The uterus is markedly enlarged with irregular thickening of the endometrial canal. Free fluid is also identified within the pelvis for which dedicated pelvic ultrasound is recommended. Body wall and musculoskeletal: Small fat-containing umbilical hernia. No significant degenerative disease within the lower thoracic or lumbosacral spine. IMPRESSION: Abnormal enlargement of the uterus with free fluid in the pelvis, more than one would expect for phys iologic free fluid. Pelvic ultrasound is recommended. Reviewed, dictated and finalized at location A. IMPRESSION: Abnormal enlargement of the uterus with free fluid in the pelvis, more than one would expect for physiologic free fluid. Pelvic ultrasound is recommended.
--- NOTE | ~2024-08-06 | CT_ITS ---
CTA chest PE protocol Ordering provider: Mulu Mackenzie APRN History: 29 years Female with . elevated d-dimer . Comparison: None. Technique: CT angiogram chest was performed following timed intravenous injection of contrast. Thin s lice axial images and reformatted coronal images were obtained. Three dimensional reformatted images of the chest were also obtained using a [employer] workstation. . Automated exposure control and iterati ve reconstruction technique were employed. The dose-length product was 257.96 mGy-cm. 100 mL Omnipaqu e 350 was given IV. Findings: PULMONARY ARTERIES: No pulmonary embolus. VISUALIZED THORACIC INLET: Normal. MEDIASTINUM: Aorta/coronary arteries: The thoracic aorta is normal. Heart/other: The heart is not enlarged. Lymph nodes: No mediastinal or hilar adenopathy. LUNGS: No pulmonary nodules or masses. No infiltrates or effusions. No pneumothorax. Dependent atelectatic c hanges. MUSCULOSKELETAL: Soft tissues: Possible soft tissue density in the left breast retroareolar area. Clinical evaluation advised. Otherwise, The superficial soft tissues are normal. Bones: Normal spine. IMPRESSION: No acute cardiopulmonary pathology. No pulmonary embolism. Possible soft tissue density in the left breast. Clinical evaluation and if warranted ultrasound is a dvised Reviewed, dictated and finalized at location A. IMPRESSION: No acute cardiopulmonary pathology. No pulmonary embolism. Possible soft tissue density in the left breast. Clinical evaluation and if war ranted ultrasound is advised
--- NOTE | ~2024-08-06 | US_ITS ---
EXAM: PELVIC ULTRASOUND HISTORY: advised from CT scan COMPARISON: Reference is made to CT examination of the abdomen and pelvis, performed the same day FINDINGS: UTERUS: 10.3 x 6.6 x 8.4 cm. The uterus is anteverted and anteflexed. The endometrial complex is thickened and demonstrates vascularity measuring 24 mm. RIGHT OVARY: The right ovary is unremarkable in echogenicity and size measuring 2.9 x 2.3 x 3.0 cm. Dopplerable flow is identified. LEFT OVARY: The left ovary is unremarkable in echogenicity and size measuring 2.6 x 1.9 x 3.0 cm Dopplerable flow is identified. IMPRESSION: Thickened vascular endometrium for which either endometritis or retained products of conception is leahy spected. At 4 weeks , the endometrium should demonstrate a maximal thickness of approximately 12 mm. Reviewed, dictated and finalized at location A. IMPRESSION: Thickened vascular endometrium for which either endometritis or retained produc ts of conception is suspected. At 4 weeks , the endometrium should demonstrate a maximal thickness o f approximately 12 mm.
[2024-08-06 15:00] VITALS: BP 116/63; PULSE 102; RESP 16; TEMP 36.4; O2SAT 100
--- NOTE | 2024-08-06 15:08 | ECG_ITS ---
Test Date: 2024-08-06 15:32:48 Measurements Intervals [place] Rate: 108 P: 69 MI: 155 QRS: 36 QRSD: 94 T: 0 QT: 314 QTc: 423 Interpretive Statements SINUS TACHYCARDIA DELAYED PRECORDIAL R/S TRANSITION BORDERLINE ST-T WAVE ABNORMALITY- ANTEROLAT/INF LEADS BASELINE ARTIFACT- I, II, III, AVL, V4-V6 ABNORMAL ECG No previous ECG available for comparison Electronically Signed On 08-06-2024 15:35:17 CDT by Catrachito Telles D.O.
--- NOTE | 2024-08-06 15:10 | ED.FEVER ---
HPI - Fever General Chief Complaint: Fever <Mulu Mackenzie APRN - Last Filed: 08/07/24 05:19> Stated Complaint: 4 days post partem, fever, headache, chills <Mulu Mackenzie APRN - Last Filed: 08/07/24 05:19> Time Seen by Provider: 08/06/24 15:10 <Mulu Mackenzie APRN - Last Filed: 08/07/24 05:19> Focused HPI: Patient is a 29-year-old female presents to the ER with complaints of fever and abdominal pain. She reports she is 4 weeks . Patient reports she had a vaginal delivery. She is not currently . Patient reports 2 days ago she started experiencing a significant headache, back pain, nausea and fever. She reports she called her OBGYN who advised she go to urgent care for evaluation. Patient reports everything at urgent care was ?negative so they advised she come to the ER for evaluation. She denies any shortness of breath, chest pain, altered mental status, or numbness/tingling in her extremities. Patient reports she passed multiple small blood clots this morning. GENERAL: Well-appearing, well-nourished, and in no acute distress. HEAD: Normocephalic, atraumatic. CHEST: Clear to auscultation. ?No respiratory distress. HEART: Tachycardia, regular rhythm. NEURO: ?Alert and oriented x3. Patient screened in triage and initial orders placed.? ?Additional care and disposition to be based upon?diagnostic testing and treatment. <Mulu Mackenzie APRN - Last Filed: 08/07/24 05:19> Related Data Home Medications: Home Medications ?Medication ?Instructions ?Recorded ?Confirmed ?Last Taken ?Type ibuprofen 200 mg tablet (Advil) 400 mg PO QID PRN pain 08/06/24 08/06/24 08/05/24 History <Mulu Mackenzie APRN - Last Filed: 08/07/24 05:19> Allergies/Adverse Reactions: Allergies Allergy/AdvReac Type Severity Reaction Status Date / Time Inhaled Anesthetics (Halogen AdvReac Intermediate Vomiting Verified 08/06/24 14:53 Based) <Mulu Mackenzie APRN - Last Filed: 08/07/24 05:19> Review of Systems Review of Systems: All systems reviewed & are unremarkable except as noted in HPI and below <Mulu Mackenzie APRN - Last Filed: 08/07/24 05:19> [facility] Past Medical History Medical History: Medical History Scoliosis Suppression of menses 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 Abnormal white blood cell count Ankle fracture, right repaired 2012 Migraine headache GERD (gastroesophageal reflux disease) Generalized anxiety disorder Chronic fatigue <Mulu Mackenzie APRN - Last Filed: 08/07/24 05:19> Surgical History Surgical History: Surgical History History of lumpectomy of right breast H/O removal of cyst S/P foot surgery, right [place] teeth removed <Mulu Mackenzie APRN - Last Filed: 08/07/24 05:19> Family History Family History: Family History Father FH: mental illness Grandparent Lupus Diabetes mellitus Heart disease Grandparent Thyroid disorder Breast cancer Breast disease Grandparent Diabetes mellitus Family hx of prostate cancer Grandparent Malignant neoplasm of prostate Family history of thyroid disease Mother Diabetes mellitus Family history of diabetes mellitus in first degree relative Asthma Father FH: mental illness Alcoholism <Mulu Mackenzie APRN - Last Filed: 08/07/24 05:19> Social History Social History: Social History Social History: Caffeine- coffee/tea Smoking status: Never smoker Alcohol intake: never Alcohol use details: little to none Substance use: never Substance use type: does not use Do You Feel Safe in your Home?: Yes Lack of Transportation: No Lack of Food: Never True Current Housing: I Have Housing Concerned About Future Housing: No Difficulty Paying Gas/Electric Bills: No Difficulty Paying for Meds: No Currently Unemployed: No Education: Associate Degree Difficulty w/ Childcare or Family Care: No Living arrangements: with family Additional living arrangements comments: Lives with her Occupation/Education: occupation Gender identity (if verbalized by the patient): Female Sexual Orientation (if Verbalized by the Patient): Straight or Heterosexual Spiritual care concerns: No <Mulu Mackenzie APRN - Last Filed: 08/07/24 05:19> Exam Narrative: GENERAL: Well appearing, well-nourished, non-toxic, in mild distress d/t pain. HEAD: Normocephalic, atraumatic. NECK: Supple. No adenopathy, no masses. RESPIRATORY: Airway patent, respirations nonlabored. Clear to auscultation bilaterally, no rales, rhonchi, wheezing. CARDIOVASCULAR: Tachycardia without murmurs, rubs, or gallops. Peripheral pulses 2+ and equal bilaterally. ABDOMINAL: Soft, + tender in lower quadrants, nondistended, no hepatosplenomegaly. Normoactive BS. MUSCULOSKELETAL: Moves all extremities. Strength/ROM intact without gross deformities. SKIN: Warm, dry, normal color. No rashes. NEURO: A&O X3. Speech clear. Cranial nerves II-XII intact. No ataxic movements. PSYCHIATRIC: Appropriate mood and affect. Normal interaction. <Mulu Mackenzie APRN - Last Filed: 08/07/24 05:19> Course INTERPRETER TRANSLATOR/PA Physician Supervision I agree with midlevel documentation; I performed the medical decision making component of this evaluation. I had independent [id number] time with the patient and performed my own independent evaluation and assessment. Patient has some retained products on her ultrasound as well as subjective fever and chills with concern for potential retained products versus endometritis. OBGYN is consulted and will plan for D&C tomorrow morning. Patient was placed on antibiotics and safe for admission at this time to a medical/surgical bed. Patient's questions were answered and she was transported upstairs without issue. <Agustin Patiño MD - Last Filed: 08/06/24 20:59> Vital Signs Vital signs: Vital Signs Temperature 36.4 C L 08/06/24 15:00 Pulse Rate 102 H 08/06/24 15:00 Respiratory Rate 16 08/06/24 15:00 Blood Pressure 116/63 08/06/24 15:00 Pulse Oximetry 100 08/06/24 15:00 Oxygen Delivery Room Air 08/06/24 15:00 Temperature 36.6 C 08/07/24 00:00 Pulse Rate 80 08/07/24 00:00 Respiratory Rate 16 08/07/24 00:00 Blood Pressure 107/57 L 08/07/24 00:00 Pulse Oximetry 97 08/07/24 00:00 Oxygen Delivery Room Air 08/06/24 22:08 <Mulu Mackenzie APRN - Last Filed: 08/07/24 05:19> Vital Signs Temperature 36.4 C L 08/06/24 15:00 Pulse Rate 102 H 08/06/24 15:00 Respiratory Rate 16 08/06/24 15:00 Blood Pressure 116/63 08/06/24 15:00 Pulse Oximetry 100 08/06/24 15:00 Oxygen Delivery Room Air 08/06/24 15:00 Temperature 36.6 C 08/07/24 00:00 Pulse Rate 80 08/07/24 00:00 Respiratory Rate 16 08/07/24 00:00 Blood Pressure 107/57 L 08/07/24 00:00 Pulse Oximetry 97 08/07/24 00:00 Oxygen Delivery Room Air 08/06/24 22:08 <Agustin Patiño MD - Last Filed: 08/06/24 20:59> MDM - Fever MDM Narrative Medical decision making narrative: Patient is a 29-year-old female presents to the ER with complaints of fever and abdominal pain. She reports she is 4 weeks . Patient reports she had a vaginal delivery. She is not currently . Patient reports 2 days ago she started experiencing a significant headache, back pain, nausea and fever. She reports she called her OBGYN who advised she go to urgent care for evaluation. Patient reports everything at urgent care was ?negative so they advised she come to the ER for evaluation. She denies any shortness of breath, chest pain, altered mental status, or numbness/tingling in her extremities. Patient reports she passed multiple small blood clots this morning. Labs Ordered: CBC, CMP, D-dimer, lipase, COVID/flu/RSV swab, troponin, urinalysis, INR, PTT, lactic acid, CRP, ESR Imaging Ordered: CTA chest, CT abdomen pelvis, pelvic US Medications Ordered: 1 L normal saline IV, morphine 4 mg IV, Ceftriaxone IV, Tylenol PO 1000mg Results: Pt's chest CT scan indicates no abnormalities. Her CT abdomen/pelvis scan indicates abnormal enlargement of the uterus with free fluid in the pelvis, more than one would expect for physiologic free fluid. Pelvic ultrasound is recommended. Pt's urinalysis indicates she has a UTI. Her lactic acid was within normal limits. Patient's D-dimer was elevated to 3.06. Her ESR was elevated to 35 mm and CRP is 7.0. Her respiratory panel was negative for any of the respiratory pathogens. Diagnosis: Endometritis, pelvic pain, urinary tract infection. Consults: 1899-spoke with Dr. Pederson (OBGYN), who suggested pt be admitted to the hospital for IV antibiotics. She would like patient to have clindamycin IV and ceftriaxone IV. Patient may have [place] for pain control. She should be NPO after midnight in case Dr. Martinez decides to do a D&C tomorrow. Pt will also be ordered Morphine PRN if she is NPO and experiencing pain. Patient Education/Shared MDM: Results of lab work and imaging shared with patient. She endorses improvement following pain medication administration. Patient and her verbalized understanding of the suggestion for admission to the hospital. They are in agreement with plan. Dr. Pederson agrees pt can be admitted under Dr. Martinez's name. <Mulu Mackenzie APRN - Last Filed: 08/07/24 05:19> Differential Diagnosis Differential diagnosis: Likely gastroenteritis, community acquired pneumonia, viral infection and influenza <Mulu Mackenzie APRN - Last Filed: 08/07/24 05:19> Lab Data Attestation: I reviewed the patient's lab results. <Mulu Mackenzie APRN - Last Filed: 08/07/24 05:19> Result diagrams: 08/06/24 15:46 08/06/24 15:46 <Mulu Mackenzie APRN - Last Filed: 08/07/24 05:19> Labs: Lab Results 08/06/24 08/06/24 Range/Units 15:45 15:46 WBC 3.4 L (4.5-10.0) K/mm3 RBC 4.16 L (4.2-5.4) M/mm3 Hgb 11.6 L D (12.0-15.0) g/dL Hct 34.8 L (37.0-47.0) % MCV 83.7 (80-100) fl MCH 27.9 (26-34) pg MCHC 33.3 (32-36) g/dl RDW 13.8 (11.5-14.5) % Plt Count 219 (150-375) k/mm3 MPV 11.1 H (7.4-10.4) fl Immature Gran % (Auto) 1.2 H (0-0.5) % Neut % (Auto) 77.5 H (45.5-73.1) % Lymph % (Auto) 15.7 L (18.3-44.2) % [place] % (Auto) 5.0 (2.6-8.5) % Eos % (Auto) 0.0 (0-4.4) % Baso % (Auto) 0.6 (0.2-1.2) % Lymph # (Auto) 0.54 L (0.9-3.2) K/mm3 [place] # (Auto) 0.2 (0.1-0.6) K/mm3 Eos # (Auto) 0.0 (0-0.3) K/mm3 Baso # (Auto) 0.0 (0.0-0.1) K/mm3 Abs Immat Gran (auto) 0.04 H (0.00-0.031) K/mm3 Absolute Neuts (auto) 2.7 (1.3-6.7) K/mm3 Absolute Nucleated RBC 0.000 (0.0-0.012) K/mm3 Nucleated RBC % 0.0 (0.0-0.2) % ESR 35 H (0-20) mm/hr PT 15.3 H (11.1-14.7) Seconds INR 1.2 APTT 33.1 (22.3-36.8) Seconds D-Dimer 3.06 H (<0.48) ug/mL Sodium 140 (137-145) mmol/L Potassium 3.4 (3.4-5.0) mmol/L Chloride 107 (98-107) mmol/L Carbon Dioxide 19 L (22-30) mmol/L Anion Gap 14 H (4-12) mmol/L BUN 10 (7-17) mg/dL Creatinine 1.00 (0.7-1.0) mg/dL Estim Creat Clear Calc 73 ml/min Estimated GFR > 60 (59 - ) Glucose 108 (65-110) mg/dL Lactic Acid 0.9 (0.7-2.0) mmol/L Calcium 8.7 (8.4-10.2) mg/dL Total Bilirubin 1.1 (0.2-1.3) mg/dL AST 34 (14-36) U/L ALT 25 (6-35) U/L Alkaline Phosphatase 86 (38-126) U/L Troponin I < 0.012 (0.000-0.034) ng/mL C-Reactive Protein 7.0 H (<1.0) mg/dL Total Protein 7.0 (6.3-8.2) g/dL Albumin 4.4 (3.5-5.1) g/dL Lipase 157 (23-300) U/L Urine Color Dark yellow (Yellow) Urine Appearance Cloudy H (Clear) Urine pH 5.5 (5.0-9.0) Ur Specific Erin 1.033 (1.001-1.035) Urine Protein 2+ H (Negative) mg/dL Urine Glucose (UA) Negative (Negative) mg/dL Urine Ketones 2+ H (Negative) mg/dL Ur Blood (Man) 3+ H (Negative) Urine Nitrate Negative (Negative) Urine Bilirubin 1+ H (Negative) Urine Urobilinogen 1.0 (<2.0) mg/dL Add Ur Microanalysis Reviewed Leukocyte Esterase Rfl 1+ H (Negative) NITISH/UL Urine RBC >100 H (0-2) /hpf Urine WBC >100 H (0-3) /hpf Ur Squamous Epith Cells Few (Few) /hpf Urine Bacteria None seen /hpf Urine Casts 11-20 Urine Mucus Present /lpf Influenza A (RT-PCR) Negative (Negative) Influenza B (RT-PCR) Negative (Negative) RSV (RT-PCR) Negative (Negative) SARS-CoV-2 RNA (RT-PCR) Negative (Negative) <Mulu Mackenzie, CREMATORY ATTENDANT - Last Filed: 08/07/24 05:19> Lab Results 08/06/24 08/06/24 Range/Units 15:45 15:46 WBC 3.4 L (4.5-10.0) K/mm3 RBC 4.16 L (4.2-5.4) M/mm3 Hgb 11.6 L D (12.0-15.0) g/dL Hct 34.8 L (37.0-47.0) % MCV 83.7 (80-100) fl MCH 27.9 (26-34) pg MCHC 33.3 (32-36) g/dl RDW 13.8 (11.5-14.5) % Plt Count 219 (150-375) k/mm3 MPV 11.1 H (7.4-10.4) fl Immature Gran % (Auto) 1.2 H (0-0.5) % Neut % (Auto) 77.5 H (45.5-73.1) % Lymph % (Auto) 15.7 L (18.3-44.2) % [place] % (Auto) 5.0 (2.6-8.5) % Eos % (Auto) 0.0 (0-4.4) % Baso % (Auto) 0.6 (0.2-1.2) % Lymph # (Auto) 0.54 L (0.9-3.2) K/mm3 [place] # (Auto) 0.2 (0.1-0.6) K/mm3 Eos # (Auto) 0.0 (0-0.3) K/mm3 Baso # (Auto) 0.0 (0.0-0.1) K/mm3 Abs Immat Gran (auto) 0.04 H (0.00-0.031) K/mm3 Absolute Neuts (auto) 2.7 (1.3-6.7) K/mm3 Absolute Nucleated RBC 0.000 (0.0-0.012) K/mm3 Nucleated RBC % 0.0 (0.0-0.2) % ESR 35 H (0-20) mm/hr PT 15.3 H (11.1-14.7) Seconds INR 1.2 APTT 33.1 (22.3-36.8) Seconds D-Dimer 3.06 H (<0.48) ug/mL Sodium 140 (137-145) mmol/L Potassium 3.4 (3.4-5.0) mmol/L Chloride 107 (98-107) mmol/L Carbon Dioxide 19 L (22-30) mmol/L Anion Gap 14 H (4-12) mmol/L BUN 10 (7-17) mg/dL Creatinine 1.00 (0.7-1.0) mg/dL Estim Creat Clear Calc 73 ml/min Estimated GFR > 60 (59 - ) Glucose 108 (65-110) mg/dL Lactic Acid 0.9 (0.7-2.0) mmol/L Calcium 8.7 (8.4-10.2) mg/dL Total Bilirubin 1.1 (0.2-1.3) mg/dL AST 34 (14-36) U/L ALT 25 (6-35) U/L Alkaline Phosphatase 86 (38-126) U/L Troponin I < 0.012 (0.000-0.034) ng/mL C-Reactive Protein 7.0 H (<1.0) mg/dL Total Protein 7.0 (6.3-8.2) g/dL Albumin 4.4 (3.5-5.1) g/dL Lipase 157 (23-300) U/L Urine Color Dark yellow (Yellow) Urine Appearance Cloudy H (Clear) Urine pH 5.5 (5.0-9.0) Ur Specific Erin 1.033 (1.001-1.035) Urine Protein 2+ H (Negative) mg/dL Urine Glucose (UA) Negative (Negative) mg/dL Urine Ketones 2+ H (Negative) mg/dL Ur Blood (Man) 3+ H (Negative) Urine Nitrate Negative (Negative) Urine Bilirubin 1+ H (Negative) Urine Urobilinogen 1.0 (<2.0) mg/dL Add Ur Microanalysis Reviewed Leukocyte Esterase Rfl 1+ H (Negative) NITISH/UL Urine RBC >100 H (0-2) /hpf Urine WBC >100 H (0-3) /hpf Ur Squamous Epith Cells Few (Few) /hpf Urine Bacteria None seen /hpf Urine Casts 11-20 Urine Mucus Present /lpf Influenza A (RT-PCR) Negative (Negative) Influenza B (RT-PCR) Negative (Negative) RSV (RT-PCR) Negative (Negative) SARS-CoV-2 RNA (RT-PCR) Negative (Negative) <Agustin Patiño MD - Last Filed: 08/06/24 20:59> Imaging Data Attestation: I personally reviewed and interpreted this imaging study as follows: <Mulu Mackenzie APRN - Last Filed: 08/07/24 05:19> Radiologist's impression: Impressions Abdomen/Pelvis CT 08/06/24 17:21 IMPRESSION: Abnormal enlargement of the uterus with free fluid in the pelvis, more than one would expect for physiologic free fluid. Pelvic ultrasound is recommended. Chest CTA 08/06/24 17:22 IMPRESSION: No acute cardiopulmonary pathology. No pulmonary embolism. Possible soft tissue density in the left breast. Clinical evaluation and if warranted ultrasound is advised Pelvis Ultrasound 08/06/24 18:31 IMPRESSION: Thickened vascular endometrium for which either endometritis or retained products of conception is suspected. At 4 weeks , the endometrium should demonstrate a maximal thickness of approximately 12 mm. <Mulu Mackenzie APRN - Last Filed: 08/07/24 05:19> Critical Care Time Critical Care Time Critical Care Time: Yes <Agustin Patiño MD - Last Filed: 08/06/24 20:59> Total Critical Care Time: 35 <Agustin Patiño MD - Last Filed: 08/06/24 20:59> Discharge Plan Discharge Clinical Impression: Acute endometritis, Pelvic pain, Urinary tract infection <Mulu Mackenzie APRN - Last Filed: 08/07/24 05:19> Patient Disposition: Still a Patient <Mulu Mackenzie APRN - Last Filed: 08/07/24 05:19> Condition: Stable <Mulu Mackenzie APRN - Last Filed: 08/07/24 05:19>
[2024-08-06 15:56] LABS: Basophils Percent Auto 0.6 % (0.2-1.2); Hematocrit 34.8 % (37.0-47.0); Hemoglobin 11.6 g/dL (12.0-15.0); Immature Granulocyte Absolute 0.04 K/mm3 (0.00-0.031); Immature Granulocyte Percent A 1.2 % (0-0.5); Lymphocytes Absolute Auto 0.54 K/mm3 (0.9-3.2); Lymphocytes Percent Auto 15.7 % (18.3-44.2); Mean Corpuscular HGB Conc 33.3 g/dl (32-36); Mean Corpuscular Hemoglobin 27.9 pg (26-34); Mean Corpuscular Volume 83.7 fl (80-100); Mean Platelet Volume 11.1 fl (7.4-10.4); Monocytes Absolute Auto 0.2 K/mm3 (0.1-0.6); Neutrophils Absolute Auto 2.7 K/mm3 (1.3-6.7); Neutrophils Percent Auto 77.5 % (45.5-73.1); Platelet Count Result 219 k/mm3 (150-375); Red Blood Count 4.16 M/mm3 (4.2-5.4); Red Cell Distribution Width 13.8 % (11.5-14.5); White Blood Count 3.4 K/mm3 (4.5-10.0)
--- OUTSIDE RECORDS SUMMARY | 2024-08-06 16:04 | XMS_ITS | Clinical Summary ---
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
--- OUTSIDE RECORDS SUMMARY | 2024-08-06 16:04 | XMS_ITS | Encounter Summary ---
Author Organization [facility] Address [address] [place] [address] Phone Care Team Providers Care Brick Burner Head Name Role Phone Boston Freeman DO Primary Care Provider +1- [phone] Encounter Details Date Type Department Care Team (Late st Contact Info) Description 09/19/[address] 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
--- OUTSIDE RECORDS SUMMARY | 2024-08-06 16:04 | XMS_ITS | Referral Summary ---
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
[2024-08-06 16:10] LABS: Lactic Acid Reflex 0.9 mmol/L (0.7-2.0)
[2024-08-06 16:11] LABS: Alanine Aminotransferase 25 U/L (6-35); Albumin Level 4.4 g/dL (3.5-5.1); Alkaline Phosphatase 86 U/L (38-126); Anion Gap 14 mmol/L (4-12); Aspartate Amino Transferase 34 U/L (14-36); Bilirubin,Total 1.1 mg/dL (0.2-1.3); Blood Urea Nitrogen 10 mg/dL (7-17); Calcium 8.7 mg/dL (8.4-10.2); Carbon Dioxide 19 mmol/L (22-30); Chloride 107 mmol/L (98-107); Estimated CRCL calculation 73 ml/min; Estimated Glomerular Filt Rate > 60; Glucose 108 mg/dL (65-110); Lipase 157 U/L (23-300); Potassium 3.4 mmol/L (3.4-5.0); Sodium 140 mmol/L (137-145)
[2024-08-06 16:12] LABS: INR 1.2; Prothrombin Time 15.3 Seconds (11.1-14.7)
[2024-08-06 16:13] LABS: Partial Thromboplastin Time 33.1 Seconds (22.3-36.8)
[2024-08-06 16:23] LABS: Troponin I < 0.012 ng/mL (0.000-0.034)
[2024-08-06 16:32] LABS: Influenza A QL RT-PCR Negative (Negative); Influenza B QL RT-PCR Negative (Negative); RSV RNA, RT-PCR Negative (Negative); SARS-CoV-2 RNA PCR Negative (Negative)
[2024-08-06 16:35] LABS: D Dimer 3.06 ug/mL (<0.48)
[2024-08-06 16:41] LABS: Add Urine Microscopic? YES; Appearance Urine Cloudy (Clear); Bacteria Urine None Seen /hpf; Bilirubin Urine 1+ (Negative); Blood Urine 3+ (Negative); Color Urine Dark Yellow (Yellow); Glucose Urine UA Negative (Negative); Ketones Urine 2+ mg/dL (Negative); Leukocyte Esterase Ur 1+ LEU/UL (Negative); Mucus Urine Present /lpf; Need Manual Microscopic Reviewed; Nitrate Urine Negative (Negative); Protein Urine 2+ mg/dL (Negative); RBC Urine >100 /hpf (0-2); Specific Grav Ur 1.033 (1.001-1.035); Squamous Epithelial Cell Urine Few /hpf (Few); WBC Urine >100 /hpf (0-3); pH Urine 5.5 (5.0-9.0)
[2024-08-06] MEDS: MORPHINE SULFATE (*CRX) 4 MG/ML INJ IV PUSH (17:18)
[2024-08-06] MEDS: SODIUM CHLORIDE 0.9% IV 1,000 ML 999 ML IV CONT (17:18)
--- OUTSIDE RECORDS SUMMARY | 2024-08-06 17:38 | XMS_ITS | Clinical Summary ---
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
--- OUTSIDE RECORDS SUMMARY | 2024-08-06 17:38 | XMS_ITS | Encounter Summary ---
Author Organization [facility] Address [address] [place] [address] Phone Care Team Providers Care Tank Furnace Operator Name Role Phone Boston Freeman DO Primary Care Provider +1- [phone] Encounter Details Date Type Department Care Team (Late st Contact Info) Description 09/19/2020 Telephone [facility] Surgery [address] [place] [address] 5th [place] [address] [place] [address] Adia Morrow Social History Tobacco Use Types Packs/Day Years Used Date Smoking Tobacco: Never Comments No Sex and Gender Information Value Date Recorded Sex Assigned at Not on file 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
--- OUTSIDE RECORDS SUMMARY | 2024-08-06 17:38 | XMS_ITS | Referral Summary ---
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
[2024-08-06 17:41] VITALS: BP 127/87; PULSE 102; RESP 16; O2SAT 100
[2024-08-06] MEDS: ACETAMINOPHEN 500 MG TABLET 1000 MG PO (17:50)
[2024-08-06 18:14] LABS: Erythrocyte Sedimentation Rate 35 mm/hr (0-20)
[2024-08-06 19:52] VITALS: TEMP 36.7
[2024-08-06 22:08] VITALS: BMI 32.1
--- NOTE | 2024-08-06 22:09 | ADMGEN ---
This patient, Dilshad Smith, was admitted to [facility] Surg Room 327-01. Patient/family oriented to hospital policies and general routines including ID bracelet, bed and alarms, visiting hours, pain management, procedures, bathroom and other care routines, personal items, smoking policy, room service/diet, and visiting hours. Information on how to activate the Rapid Response Team has been discussed. Patient/Family are encouraged to report perceived risks to care and to ask questions if they do not understand what they are told or what they should do.
[2024-08-06 22:14] VITALS: BP 104/65; PULSE 81; RESP 19; TEMP 36.2; O2SAT 95
[2024-08-06] MEDS: SODIUM CHLORIDE 0.9% IV 1,000 ML 125 ML IV CONT (22:46)
[2024-08-07] VITALS (23 sets, daily range): BP systolic 98–229; BP diastolic 57–109; PULSE 58–167; RESP 12–29; TEMP 36.1–39.4; O2SAT 91–100
[2024-08-07] MEDS: ONDANSETRON INJ 4 MG/2 ML VIAL IV PUSH ×2 (03:12→16:43)
[2024-08-07] MEDS: HYDROcodone/acetaminophen (*CRX) 5-325 MG TABLET 1 TAB PO ×3 (03:14→18:06)
[2024-08-07] MEDS: CLINDAMYCIN 600 MG/D5W 50 ML 600 MG/50 ML PIGGYBACK 100 MG IVPB ×3 (05:38→21:18)
[2024-08-07] MEDS: SODIUM CHLORIDE 0.9% IV 1,000 ML 125 ML IV CONT (06:43)
--- NOTE | 2024-08-07 07:55 | PM.IMHP ---
H&P: HPI History of Present Illness Date/Time: 08/07/24 07:55 Chief Complaint: abdominal pain Narrative: 29-year-old who presents 4 weeks with complaint of abdominal pain, headache, fevers. Patient states this past Saturday she started having an increase in pelvic cramping. She states her symptoms worsen over the next few days. She states by Saturday night she had a self-reported fever. She has been passing quarter-size blood clots since delivery. Patient states that she had a temperature 101.7?. She was advised to be evaluated at urgent care. Patient states workup was negative for any influenza or respiratory infections. Patient was instructed to be evaluated in the emergency room. Imaging in the emergency room showed an enlarged uterus with an irregularly thickened and vascular content within the intrauterine cavity. patient was also found to have a UTI. She was admitted overnight for IV antibiotics. Patient states she still has an occasional headache and lower back pain. Review of Systems Constitutional: Constitutional: Reports as per HPI, Reports body ache(s), Reports fever(s) and Reports headache(s) Cardiovascular: Cardiovascular: Denies chest pain Respiratory: Respiratory: Reports no additional respiratory complaints Gastrointestinal: Gastrointestinal: Reports no additional gastrointestinal complaints, Reports abdominal pain, Denies constipation and Reports GI cramping Genitourinary: Genitourinary: Reports as per HPI Musculoskeletal: Musculoskeletal: Reports as per HPI and Reports back pain PMFSH Past Medical History Medical History Scoliosis Suppression of menses 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 Abnormal white blood cell count Ankle fracture, right repaired 2012 Migraine headache GERD (gastroesophageal reflux disease) Generalized anxiety disorder Chronic fatigue Surgical History Surgical History History of lumpectomy of right breast H/O removal of cyst S/P foot surgery, right [place] teeth removed Family History Family History Father FH: mental illness Grandparent Lupus Diabetes mellitus Heart disease Grandparent Thyroid disorder Breast cancer Breast disease Grandparent Diabetes mellitus Family hx of prostate cancer Grandparent Malignant neoplasm of prostate Family history of thyroid disease Mother Diabetes mellitus Family history of diabetes mellitus in first degree relative Asthma Father FH: mental illness Alcoholism Social History Social History Social History: Caffeine- coffee/tea Smoking status: Never smoker Alcohol intake: never Alcohol use details: little to none Substance use: never Substance use type: does not use Do You Feel Safe in your Home?: Yes Lack of Transportation: No Lack of Food: Never True Current Housing: I Have Housing Concerned About Future Housing: No Difficulty Paying Gas/Electric Bills: No Difficulty Paying for Meds: No Currently Unemployed: No Education: Associate Degree Difficulty w/ Childcare or Family Care: No Living arrangements: with family Additional living arrangements comments: Lives with her Occupation/Education: occupation Gender identity (if verbalized by the patient): Female Sexual Orientation (if Verbalized by the Patient): Straight or Heterosexual Spiritual care concerns: No Meds Home Medications and Allergies Home Medications ?Medication ?Instructions ?Recorded ?Confirmed ?Type ibuprofen 200 mg tablet (Advil) 400 mg PO QID PRN pain 08/06/24 08/06/24 History Allergies Allergy/AdvReac Type Severity Reaction Status Date / Time Inhaled Anesthetics (Halogen AdvReac Intermediate Vomiting Verified 08/06/24 14:53 Based) Vital Signs Vital Signs - 24 hr 08/06/24 15:00 08/06/24 17:41 08/06/24 19:52 Temperature 97.5 F L 98.1 F Pulse Rate 102 H 102 H Respiratory Rate 16 16 Blood Pressure 116/63 127/87 Pulse Oximetry 100 100 Oxygen Delivery Room Air 08/06/24 22:08 08/06/24 22:14 08/07/24 00:00 Temperature 97.1 F L 97.9 F Pulse Rate 81 80 Respiratory Rate 19 16 Blood Pressure 104/65 107/57 L Pulse Oximetry 95 97 Oxygen Delivery Room Air 08/07/24 04:00 Temperature 98.2 F Pulse Rate 99 Respiratory Rate 17 Blood Pressure 107/63 Pulse Oximetry 96 Oxygen Delivery Exam Const: General: cooperative and comfortable Neck: Neck: normal visual inspection Resp: Effort & Inspection: normal respiratory effort and able to speak in complete sentences Cardio: Rate: regular rate GI: Inspection: normal to inspection and non-distended GI Palp: Yes abdominal tenderness H&P: Results Labs Labs: Short CBC 08/06/24 Range/Units 15:46 WBC 3.4 L (4.5-10.0) K/mm3 Hgb 11.6 L D (12.0-15.0) g/dL Hct 34.8 L (37.0-47.0) % Plt Count 219 (150-375) k/mm3 BMP 08/06/24 15:46 Sodium 140 Potassium 3.4 Chloride 107 Carbon Dioxide 19 L BUN 10 Creatinine 1.00 Glucose 108 Calcium 8.7 Cardiac Enzymes 08/06/24 Range/Units 15:46 Troponin I < 0.012 (0.000-0.034) ng/mL Liver Function 08/06/24 Range/Units 15:46 Total Bilirubin 1.1 (0.2-1.3) mg/dL AST 34 (14-36) U/L ALT 25 (6-35) U/L Alkaline Phosphatase 86 (38-126) U/L Albumin 4.4 (3.5-5.1) g/dL Urine 08/06/24 Range/Units 15:46 Urine Color Dark yellow (Yellow) Urine Appearance Cloudy H (Clear) Urine pH 5.5 (5.0-9.0) Ur Specific [place] 1.033 (1.001-1.035) Urine Protein 2+ H (Negative) mg/dL Urine Glucose (UA) Negative (Negative) mg/dL Assessment and Plan Assessment and plan (1) Retained products of conception: Status: Acute Assessment and Plan: 29-year-old female who presents 4 weeks with complaint of abdominal pain Patient reported continued passing large clots and cramping She developed worsening abdominal tenderness Reports fevers at home, afebrile during admission No leukocytosis on CBC Pelvic imaging concerning for enlarged uterus with irregular hypervascular tissue within the intrauterine cavity Differential of retained products of conception versus endometritis Patient was admitted overnight and received IV antibiotics Discussed plan of care with patient and mother at bedside Discussed IV antibiotics and observation verses surgical management via suction D&C Risks, benefits, alternatives discussed Will plan to proceed with suction D and C for suspected retained products of conception versus endometritis Patient has been NPO, will continue IV fluids Will continue antibiotics (2) Urinary tract infection: Code(s): N39.0 - Urinary tract infection, site not specified Status: Acute (3) Acute endometritis: Code(s): N71.0 - Acute inflammatory disease of uterus Status: Acute
--- NOTE | 2024-08-07 12:58 | P.PNAN_ITS ---
Anes - Initial Pre Proc Eval Procedure: Operation Date: 08/07/24 13:30 Proposed Procedures p Suction Dilatation and Curettage - Jerman Martinez MD Date/Time: 08/07/24 12:58 Surgeon: Jerman Martinez MD Pre Op Diagnosis: endometritis, urinary tract infection, pelvis pain Patient Data Age: 29 Gender: F Height: 1.6 m Weight: 82.1 kg Last Vital Signs Temp 36.7 C 08/07/24 12:00 Pulse 72 08/07/24 12:00 Resp 18 08/07/24 12:00 BP 110/61 08/07/24 12:00 Pulse Ox 96 08/07/24 12:00 O2 Del Method Room Air 08/06/24 22:08 Allergies Allergy/AdvReac Type Severity Reaction Status Date / Time Inhaled Anesthetics (Halogen AdvReac Intermediate Vomiting Verified 08/06/24 14:53 Based) Home Medications ?Medication ?Instructions ?Recorded ?Confirmed ?Type ibuprofen 200 mg tablet (Advil) 400 mg PO QID PRN pain 08/06/24 08/06/24 History Laboratory Tests 08/06/24 08/06/24 15:45 15:46 WBC 3.4 L K/mm3 (4.5-10.0) RBC 4.16 L M/mm3 (4.2-5.4) Hgb 11.6 L D g/dL (12.0-15.0) Hct 34.8 L % (37.0-47.0) MCV 83.7 fl (80-100) MCH 27.9 pg (26-34) MCHC 33.3 g/dl (32-36) RDW 13.8 % (11.5-14.5) Plt Count 219 k/mm3 (150-375) MPV 11.1 H fl (7.4-10.4) Immature Gran % (Auto) 1.2 H % (0-0.5) Neut % (Auto) 77.5 H % (45.5-73.1) Lymph % (Auto) 15.7 L % (18.3-44.2) [place] % (Auto) 5.0 % (2.6-8.5) Eos % (Auto) 0.0 % (0-4.4) Baso % (Auto) 0.6 % (0.2-1.2) Lymph # (Auto) 0.54 L K/mm3 (0.9-3.2) [place] # (Auto) 0.2 K/mm3 (0.1-0.6) Eos # (Auto) 0.0 K/mm3 (0-0.3) Baso # (Auto) 0.0 K/mm3 (0.0-0.1) Abs Immat Gran (auto) 0.04 H K/mm3 (0.00-0.031) Absolute Neuts (auto) 2.7 K/mm3 (1.3-6.7) Absolute Nucleated RBC 0.000 K/mm3 (0.0-0.012) Nucleated RBC % 0.0 % (0.0-0.2) ESR 35 H mm/hr (0-20) PT 15.3 H Seconds (11.1-14.7) INR 1.2 APTT 33.1 Seconds (22.3-36.8) D-Dimer 3.06 H ug/mL (<0.48) Sodium 140 mmol/L (137-145) Potassium 3.4 mmol/L (3.4-5.0) Chloride 107 mmol/L (98-107) Carbon Dioxide 19 L mmol/L (22-30) Anion Gap 14 H mmol/L (4-12) BUN 10 mg/dL (7-17) Creatinine 1.00 mg/dL (0.7-1.0) Estim Creat Clear Calc 73 ml/min Estimated GFR > 60 (59 - ) Glucose 108 mg/dL (65-110) Lactic Acid 0.9 mmol/L (0.7-2.0) Calcium 8.7 mg/dL (8.4-10.2) Total Bilirubin 1.1 mg/dL (0.2-1.3) AST 34 U/L (14-36) ALT 25 U/L (6-35) Alkaline Phosphatase 86 U/L (38-126) Troponin I < 0.012 ng/mL (0.000-0.034) C-Reactive Protein 7.0 H mg/dL (<1.0) Total Protein 7.0 g/dL (6.3-8.2) Albumin 4.4 g/dL (3.5-5.1) Lipase 157 U/L (23-300) Urine Color Dark yellow (Yellow) Urine Appearance Cloudy H (Clear) Urine pH 5.5 (5.0-9.0) Ur Specific [place] 1.033 (1.001-1.035) Urine Protein 2+ H mg/dL (Negative) Urine Glucose (UA) Negative mg/dL (Negative) Urine Ketones 2+ H mg/dL (Negative) Ur Blood (Man) 3+ H (Negative) Urine Nitrate Negative (Negative) Urine Bilirubin 1+ H (Negative) Urine Urobilinogen 1.0 mg/dL (<2.0) Add Ur Microanalysis Reviewed Leukocyte Esterase Rfl 1+ H NITISH/UL (Negative) Urine RBC >100 H /hpf (0-2) Urine WBC >100 H /hpf (0-3) Ur Squamous Epith Cells Few /hpf (Few) Urine Bacteria None seen /hpf Urine Casts 11-20 Urine Mucus Present /lpf Influenza A (RT-PCR) Negative (Negative) Influenza B (RT-PCR) Negative (Negative) RSV (RT-PCR) Negative (Negative) SARS-CoV-2 RNA (RT-PCR) Negative (Negative) Patient hx anesthesia problems: none Family hx anesthesia problems: none Results Review: All pre-operative results and documents have been reviewed as part of the pre- operative evaluation. 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 Abnormal white blood cell count Ankle fracture, right repaired 2012 Migraine headache GERD (gastroesophageal reflux disease) Generalized anxiety disorder Chronic fatigue Surgical History Surgical History History of lumpectomy of right breast H/O removal of cyst S/P foot surgery, right [place] teeth removed Family History Family History Father FH: mental illness Grandparent Lupus Diabetes mellitus Heart disease Grandparent Thyroid disorder Breast cancer Breast disease Grandparent Diabetes mellitus Family hx of prostate cancer Grandparent Malignant neoplasm of prostate Family history of thyroid disease Mother Diabetes mellitus Family history of diabetes mellitus in first degree relative Asthma Father FH: mental illness Alcoholism Social History Social History Social History: Caffeine- coffee/tea Smoking status: Never smoker Alcohol intake: never Alcohol use details: little to none Substance use: never Substance use type: does not use Do You Feel Safe in your Home?: Yes Lack of Transportation: No Lack of Food: Never True Current Housing: I Have Housing Concerned About Future Housing: No Difficulty Paying Gas/Electric Bills: No Difficulty Paying for Meds: No Currently Unemployed: No Education: Associate Degree Difficulty w/ Childcare or Family Care: No Living arrangements: with family Additional living arrangements comments: Lives with her Occupation/Education: occupation Gender identity (if verbalized by the patient): Female Sexual Orientation (if Verbalized by the Patient): Straight or Heterosexual Spiritual care concerns: No Anes - Eval Final PreProcedure Day of Procedure 08/07/24 12:58 Patient weight: obese Heart: regular rate and rhythm Lungs: clear to auscultation Airway: Mallampati scale class II Neurological: alert and oriented Last oral intake: >/= 8 hours ASA classification: II Emergent: no Anesthetic plan: proceed Anesthesia type and monitoring: general GIVS and standard monitoring Results Review: All pre-operative results and documents have been reviewed as part of the pre- operative evaluation. Informed Consent: The patient's anesthetic plan and its attendant risks and benefits were discussed with the patient/family/POA. Questions were solicited and answers provided to the satisfaction of the patient/family/POA.
--- NOTE | 2024-08-07 13:01 | WPDHPUPDATE1 ---
History and Physical Update Update Date/Time: 08/07/24 13:01 History and Physical has been reviewed, including an updated exam of the patient. There are NO changes in the patient's condition. Risks, benefits, and alternatives have been discussed and questions answered. Patient agrees to proceed with procedure. will add type and screen to assess rhogam status. reports her last Rhogam injection was in April. Her was Rh negative as well.
--- NOTE | 2024-08-07 14:01 | W.PM.PROC2 ---
Procedure Note - Detailed Date of Procedure 08/07/24 Pre-op Diagnosis retained products of conception Post-op Diagnosis Same Procedure Performed Suction Dilation & curettage Surgeon Jerman Martinez MD Anesthesia General Indications retained products of conception on US Findings intrauterine products of conception Description of Procedure The patient was taken to the operating room after abnormal thickened vascular tissue had been noted on on transvaginal ultrasound. The risks, benefits and alternatives of the procedure were reviewed with the patient and informed consent was obtained. The patient was taken to the OR and anesthesia was noted to be adequate. The patient was placed in the dorsolithotomy position. Pelvic exam was performed with findings noted above. The patient was prepped and draped in the usual sterile fashion. Sterile speculum was placed in the vagina and the cervix was grasped with a tenaculum. The cervix was dilated further to allow for passage of a 8 mm suction curette. The 8 mm suction curette was gently advanced to the fundus, suction was activated, and the tip was rotated while being withdrawn to clear the uterus of products. This suction process was repeated 3 additional times due to the quantity of material in the uterus. The sharp curette was introduced and advanced to the fundus to remove any remaining products. The suction curette was reintroduced one final time to ensure all products had been removed. The tenaculum was removed. There was an area on the posterior cervix that was bleeding. A figure of eight 2-0 vicryl suture was placed to make hemostatic. Good hemostasis was noted. Instrument, sponge, and sharp counts were correct. Patient tolerated the procedure well and was taken to the recovery room in stable condition. Estimated Blood Loss 300 Drains No Packing No Pathology Yes (products of conception ) Complications No immediate complications Condition Stable Disposition Floor [facility] Billing Surgery - Charge Forward: Surgery Billing
[2024-08-07] MEDS: LACTATED RINGERS 1,000 ML 30 ML IV CONT ×2 (14:07→14:44)
[2024-08-07] MEDS: fentaNYL CITRATE INJ (*CRX) 100 MCG/2 ML VIAL 25 MCG IV PUSH ×2 (15:15→16:20)
[2024-08-07] MEDS: MEPERIDINE HCL INJ (*CRX) 50 MG/ML AMPUL 25 MG IV PUSH (15:32)
[2024-08-07] MEDS: MIDAZOLAM HCL (*CRX) 2 MG/2 ML VIAL IV PUSH (15:39)
--- NOTE | 2024-08-07 15:41 | SUR.PHASEI ---
1532 pt is shivering very hard due to being cold, bear hugger applied to pt and pt continues to shake. Pt color is pale and tachycardic. Called Anesthesia, Dr. Barber, and received orders for Demerol. Entering order
--- NOTE | 2024-08-07 15:43 | SUR.PHASEI ---
1537 - Anesthesia came to pt bedside, pt still shivering and tachycardic. Order for versed given to RN.
--- NOTE | 2024-08-07 16:07 | SUR.PHASEI ---
1557- Pt lab work for Rhogam is back and pt is A negative. Put a call out to Dr. Martinez for Rhogam orders, awaiting response
[2024-08-07] MEDS: RHO(D) IMMUNE GLOBULIN 300 MCG/2 ML SYRINGE IM (16:24)
[2024-08-07] MEDS: ACETAMINOPHEN 325 MG TABLET 650 MG PO (17:31)
[2024-08-07] MEDS: POLYSACCHARIDE IRON COMPLEX 150 MG CAPSULE PO (17:31)
[2024-08-07] MEDS: cefTRIAXone 2 GM/NS 100 ML 2 GM/100 ML BAG IVPB (17:38)
[2024-08-07] MEDS: IBUPROFEN 600 MG TABLET PO (20:00)
[2024-08-08] MEDS: CLINDAMYCIN 600 MG/D5W 50 ML 600 MG/50 ML PIGGYBACK 100 MG IVPB ×2 (05:01→12:02)
[2024-08-08 05:06] VITALS: BP 92/63; PULSE 64; RESP 16; TEMP 36.3; O2SAT 98
[2024-08-08 05:45] LABS: Hematocrit 28.8 % (37.0-47.0); Hemoglobin 9.4 g/dL (12.0-15.0); Immature Granulocyte Absolute 0.01 K/mm3 (0.00-0.031); Immature Granulocyte Percent A 0.3 % (0-0.5); Lymphocytes Percent Auto 14.5 % (18.3-44.2); Mean Corpuscular HGB Conc 32.6 g/dl (32-36); Mean Corpuscular Hemoglobin 27.6 pg (26-34); Mean Corpuscular Volume 84.5 fl (80-100); Monocytes Absolute Auto 0.2 K/mm3 (0.1-0.6); Monocytes Percent Auto 5.2 % (2.6-8.5); Neutrophils Absolute Auto 2.8 K/mm3 (1.3-6.7); Platelet Count Result 163 k/mm3 (150-375); Red Blood Count 3.41 M/mm3 (4.2-5.4); Red Cell Distribution Width 13.8 % (11.5-14.5); White Blood Count 3.5 K/mm3 (4.5-10.0)
--- NOTE | 2024-08-08 07:58 | P.DS_ITS ---
DS: Admitting Diagnosis Discharge Date 08/08/24 Admitting Diagnosis acute cystitis pelvic pain retained products of conception DS: Discharge Diagnosis Discharge Diagnosis (1) Retained products of conception: Status: Acute (2) Urinary tract infection: Code(s): N39.0 - Urinary tract infection, site not specified Status: Acute DS: Summary Hospital Course Hospital Course: 29-year-old female who presented to the emergency room with complaint of abdominal pain, fevers. She was found to have a UTI. Pelvic imaging was concerning for retained products of conception. Patient was admitted for IV antibiotics. She underwent suction D&C of retained products of conception. IV antibiotics were continued throughout hospital course. Patient had no leukocytosis. Patient did well postoperatively. Patient discharged home on p.o. antibiotics. Status at Discharge Functional status at discharge: independent ambulation Overall status at discharge: patient is back to baseline Time Spent with Patient Time attestation: Total time spent providing and/or coordinating discharge services: Time spent: Less than 30 minutes Exam Const: General: cooperative and comfortable Neck: Neck: normal visual inspection Resp: Effort & Inspection: normal respiratory effort and able to speak in complete sentences Cardio: Rate: regular rate GI: Inspection: normal to inspection GI Palp: Yes abdominal tenderness Psych: Appearance: grossly normal Mental Status: mental status grossly normal DS: Data Data Completed and Pending Pending studies at discharge: Pending at discharge 08/07/24 13:52 Surgical [PTH] Routine Labs on day of discharge: Labs from last 24 hours 08/08/24 08/07/24 05:39 14:31 WBC 3.5 L RBC 3.41 L Hgb 9.4 L Hct 28.8 L MCV 84.5 MCH 27.6 MCHC 32.6 RDW 13.8 Plt Count 163 MPV 11.0 H Immature Gran % (Auto) 0.3 Neut % (Auto) 80.0 H Lymph % (Auto) 14.5 L [place] % (Auto) 5.2 Eos % (Auto) 0.0 Baso % (Auto) 0.0 L Lymph # (Auto) 0.50 L [place] # (Auto) 0.2 Eos # (Auto) 0.0 Baso # (Auto) 0.0 Abs Immat Gran (auto) 0.01 Absolute Neuts (auto) 2.8 Absolute Nucleated RBC 0.000 Nucleated RBC % 0.0 Blood Type A Negative Antibody Screen Negative Screen Not Reportable Baby's Blood Type Not Reportable Baby's NGA Not Reportable Doses of RhIg Required 1 Preliminary micro results at discharge 08/06/24 15:46 Urine Culture - Preliminary Urine Clean Catch Gram negative bacilli isolated Discharge Plan Discharge Consulting providers: Jerman Martinez Discharging Clinician: Jerman Martinez Patient Disposition: Home Activity: pelvic rest Diet: regular Patient Instructions: Antibiotic Form, Dilation and Curettage (DC) Patient Language: Portuguese Stand Alone Forms: General Discharge Information Follow-up/Referrals: Jerman Martinez MD [Physician] - Discharge Medications: New hydrocodone-acetaminophen 5-325 mg tablet 1 tablet PO Q6H PRN (Reason: pain) Qty: 28 0RF cephalexin 500 mg capsule 500 mg PO Q12H 14 Days Qty: 28 0RF ibuprofen 600 mg tablet 600 mg PO Q6H PRN (Reason: pain) Qty: 30 0RF polysaccharide iron complex 150 mg iron Capsule 150 mg PO BIDWM Qty: 60 0RF Continued ibuprofen [Advil] 200 mg tablet 400 mg PO QID PRN (Reason: pain) Date of admission: 08/06/24 20:55 Primary Care Provider: Boston Freeman Admitting Provider: Jerman Martinez Attending physician on admission: Jerman Martinez Condition: Stable
[2024-08-08 08:00] VITALS: BP 92/60; PULSE 80; RESP 18; TEMP 36.1; O2SAT 100
[2024-08-08] MEDS: POLYSACCHARIDE IRON COMPLEX 150 MG CAPSULE PO (08:16)
[2024-08-08] MEDS: MULTIVIT/MIN/PREN/FOL AC/IRON TABLET 1 TAB PO (08:17)
[2024-08-08] MEDS: HYDROcodone/acetaminophen (*CRX) 5-325 MG TABLET 1 TAB PO (08:17)
[2024-08-08] MEDS: cefTRIAXone 2 GM/NS 100 ML 2 GM/100 ML BAG IVPB (08:18)
--- OUTSIDE RECORDS SUMMARY | 2024-08-10 07:29 | XMS_ITS | Clinical Summary ---
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
--- OUTSIDE RECORDS SUMMARY | 2024-08-10 07:29 | XMS_ITS | Encounter Summary ---
Author Organization [facility] Address [address] [place] [address] Phone Care Team Providers Care Monument Stonecutter Name Role Phone Boston Freeman DO Primary Care Provider [phone]- [phone] Encounter Details Date Type Department Care Team (Late st Contact Info) Description 09/19/2020 Telephone [facility] Surgery [facility] 5th [place] [address] [place] [address] Adia Morrow Social History Tobacco Use Types Packs/Day Years Used Date Smoking Tobacco: Never Comments No Sex and Gender Information Value Date Recorded Sex Assigned at Not on file 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
--- OUTSIDE RECORDS SUMMARY | 2024-08-10 07:29 | XMS_ITS | Referral Summary ---
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
== END 2024-08-08 13:05 | disposition home or self-care (01) ==
LOC: ANHED 19:56 → ANH3MEDSUR 08-07 07:38
PROVIDERS: Admitting Provider Student in an Organized Health Care Education/Training Program; Emergency Provider Registered Nurse; PCP Internal Medicine; Visit Provider Student in an Organized Health Care Education/Training Program
PROC: (CPT 59160; principal; 2024-08-07 13:30)
DX: O72.2 Delayed and secondary postpartum hemorrhage (principal); O86.20 Urinary tract infection following delivery, unspecified; N39.0 Urinary tract infection, site not specified; O86.12 Endometritis following delivery; Z20.822 Contact with and (suspected) exposure to COVID-19
CPT/HCPCS: 59160; 36415; 71275; 74177; 76856; 80053; 81001; 83605; 83690; 84484; 85025; 85380; 85461; 85610; 85652; 85730; 86140; 86850; 86900; 86901; 87086; 87186; 87637; 88305; 90384; 93005; 96365; 96375; 96376; 99285; A9270; G0378; J0696; J2003; J2175; J2250; J2270; J2405; J2704; J2790; J3010; J7030; J7120; Q9967